=== PATIENT | female | born 2000 | race Caucasian/White ===

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

== ENCOUNTER 2019-08-06 11:57 | Emergency (ER) | payer OTHER ==
--- OUTSIDE RECORDS SUMMARY | 2019-08-06 12:11 | XMS REPORT ---
:2000 Author Organization [facility] Care Team Providers Name Role Phone GARCÍA POTTER Primary Care Physician Unavailable Allergies, Adverse Reactions, Alerts Allergy Code CodeSystem Reaction Severity Criticality Status Start Substance Date Moderate Medications Medication Medication Medication Start Stop Route Dose Status Fill Code CodeSystem Date Date Instructions amlodipine 613368 RxNorm 2018-07 oral 2.5 mg active for 30 -14 tablet day(s) atorvastatin 814234 RxNorm 2018-04 oral 10 mg active for 30 -23 tablet day(s) carbamazepine 188782 RxNorm 2018-07 oral 200 mg active for 30 -19 tablet day(s) mirtazapine 450227 RxNorm 2018-10 oral 15 mg active for 30 -14 tablet day(s) mirtazapine 942517 RxNorm 2018-10 2019-0 oral 15 mg active for 30 -14 8-12 tablet day(s) metformin 424630 RxNorm 2018-06 oral 850 mg active for 30 -29 tablet day(s) Latuda 8370146 RxNorm 2018-01 oral 40 mg active for 30 -07 tablet day(s) clonidine HCl 953975 RxNorm 2018-07 oral 0.1 mg active for 30 -26 tablet day(s) Problems Problem Name Code CodeSystem Alternate Alternate Start End Status Narrative Code CodeSystem Date Date Bipolar 90307098 SNOMED-CT 2018- Active affective 3-22 disorder, unspecified Bipolar 73362435 SNOMED-CT 0 Active affective 3-22 disorder, unspecified Relevant diagnostic tests/laboratory data Narrative No Information Procedures Procedure Code CodeSystem Target Date of Status Service Device Device Device Name Site Procedure Delivery Code Name UID Location SNOMED-CT () 2018-09-[address], [id number] SNOMED-CT () 2018-09-[address], [place], [id number] SNOMED-CT () 2018-10-07 complete Mental d Health- [address], [id number] Office or [id number] SNOMED-CT () 2018-10-16 complete Mental other 6 d Health- outpatient [facility] visit for [address], [facility], of an [place], established [id number] patient, [phone] which requires at least 2 of these 3 rand components: A problem focused history; A problem focused examination; Straightforw brenton medical decision making. Counselin SNOMED-CT () 2018-10-21 complete Mental d Health- [address], [id number] SNOMED-CT () 2018-11-25 complete Mental d Health- [address], [id number] [id number] Psychotherap [id number] SNOMED-CT () 2018-12-09 complete Mental y, 45 04 d Health- minutes with [address], [id number] [id number] Psychotherap [id number] SNOMED-CT () 2018-12-30 complete Mental y, 45 04 d Health- minutes with [address], [id number] [id number] SNOMED-CT () 2019-01-27 complete Mental d Health- [address], [id number] [id number] Psychotherap [id number] SNOMED-CT () 2019-02-17 complete Mental y, 45 04 d Health- minutes with [address], [id number] [phone] SNOMED-CT () 2019-03-11 complete Mental d Health- [address], [id number] [phone] SNOMED-CT () 2019-04-08 complete Mental d Health- [address], [id number] [id number] SNOMED-CT () 2019-04-29 complete Mental d Health- [address], [id number] [id number] SNOMED-CT () 2019-05-13 complete Mental d Health- [address], [id number] [id number] Psychotherap [id number] SNOMED-CT () 2019-05-28 complete Mental y, 45 04 d Health- minutes with [address], [id number] [phone] SNOMED-CT () 2019-06-17 complete Mental d Health- [address], [id number] [id number] SNOMED-CT () 2019-07-15 complete Mental d Health- [address], [id number] [phone] Encounters/Encounter Diagnoses Encounter Name Encounter Diagnosis Diagnosis Diagnosis Date of Service Code Code Name CodeSystem Diagnosis Delivery Location Psychotherapy [id number] Bipolar SNOMED-CT 2019-07-15 Behavioral Individual 30 affective Health min disorder, [facility] [address] [place], [place], [phone] Vital Signs No Information Social History Element Description Description Start End Code CodeSystem AdditionalInfo Date Date SexAssignedAtBirth Female 1999-06 F AdministrativeGender 2-14 Hospital Discharge Instructions Reason For Referral Medical Equipment FDA Assessments
--- OUTSIDE RECORDS SUMMARY | 2019-08-06 12:11 | XMS REPORT | Continuity of Care Document ---
:2000 External Reference #:[id number] Author Name CINDY Joseph Address [address] [id number] Care Team Providers Name Role Phone Sean Schwab - Family Medicine Care Team Information Environmental Engineering Professor 1965 Problems Description No Information Available Social History Type Date Description Comments Sex Unknown Allergies, Adverse Reactions, Alerts Active Allergies Reaction Severity Comments Date Nka 12/25/1999 Sulfamethoxazole / Trimethoprim 07/02/2019 Mirtazapine twitching 07/02/2019 Valproic Acid urticaria 07/02/2019 Medications Active Medications SIG Qnty Indications Ordering Provider Date Metformin HCL take 1 tablet by Unknown 850mg Tablets mouth twice a day Clonidine HCL 0.1MG 3 tablets by Unknown mouth at bedtime Multivitamin 2 a day Unknown Acetaminophen 2 tablets by Unknown 325mg Tablets mouth every 6 hours as needed Amlodipine Besylate 1 by mouth every Unknown 2.5mg day Tablets Xyzal 5MG one a day Unknown Latuda 1 tab by mouth Unknown 40mg Tablets every day Anita 1 by mouth every Unknown 3-0.02mg Tablets day Atorvastatin Calcium 1 by mouth every Unknown 10mg day Tablets Tegretol take 1 tablet in Unknown 200mg Tablets the morning and afternoon, and 2 at bedtime Zoloft 50MG one a day Unknown History Medications Tamiflu Use 1 PO Q.D 7caps Sha Meraz, 05/25/2019 - 75mg Capsules X 7 Days M.D. 07/02/2019 Immunizations CPT Code Status Date Vaccine Lot # [id number] Given 12/18/1999 DTaP & Hib Immunization 83873 Given 12/18/1999 IPV Inactive Poliovirus Vaccine 49893 Given 05/30/1999 MMR Virus Immunization 20340 Given 1998 Comvax Hep B & Hib Immunization 19769 Given 1998 DTaP Immunization 91379 Given 1998 IPV Inactive Poliovirus Vaccine 37404 Given 1998 DTaP Immunization 94098 Given 1998 (Hib) Hemoplilus Influenza B 39304 Given 1998 Inactive Polio Immunization 56604 Given 1998 Hemopholus Influenza B Immunization 10735 Given 1998 DTaP Immunization 96055 Given 1998 Hepatitis B Immunization, -19 Years 72925 Given 1998 Hepatitis B Immunization, -19 Years Vital Signs Date Vital Result Comment 07/02/2019 10:15am BP Systolic 120 mmHg BP Diastolic 70 mmHg Heart Rate 70 /min Body Temperature 97.2 F Respiratory Rate 20 /min Height 66.5 inches 5'6.50" Weight 271.00 lb BMI (Body Mass Index) 43.1 kg/m2 03/14/2009 11:02am BP Systolic 120 mmHg BP Diastolic 80 mmHg Heart Rate 96 /min Body Temperature 97.2 F Respiratory Rate 20 /min Height 58.5 inches 4'10.50" Weight 161.00 lb BMI (Body Mass Index) 33.1 kg/m2 Body Mass Index Percentile 99 % Weight Percentile >97th Height Percentile 78 % Results Description No Information Available Procedures Description No Information Available Medical Devices Description No Information Available Encounters Description No Information Available Assessments Date Code Description Provider 07/02/2019 M79.645 Pain in left finger(s) CINDY Joseph Plan of Treatment Future Appointment(s):07/21/2019 10:00 am - Genie Cook [facility]7/02/2019 - MARCIA JosephPM79.645 Pain in left finger(s) Functional Status Description No Information Available Mental Status Description No Information Available Referrals Description No Information Available
--- OUTSIDE RECORDS SUMMARY | 2019-08-06 12:11 | XMS REPORT ---
:2000 Author Organization [facility] Care Team Providers Name Role Phone GARCÍA POTTER Primary Care Physician Unavailable Allergies, Adverse Reactions, Alerts Allergy Code CodeSystem Reaction Severity Criticality Status Start Substance Date Moderate Medications Medication Medication Medication Start Stop Route Dose Status Fill Code CodeSystem Date Date Instructions mirtazapine 933581 RxNorm 2018-10 oral 15 mg active for 30 -14 tablet day(s) atorvastatin 630555 RxNorm 2018-04 oral 10 mg active for 30 -23 tablet day(s) metformin 155294 RxNorm 2018-06 oral 850 mg active for 30 -29 tablet day(s) amlodipine 108559 RxNorm 2018-07 oral 2.5 mg active for 30 -14 tablet day(s) clonidine HCl 795090 RxNorm 2018-07 oral 0.1 mg active for 30 -26 tablet day(s) carbamazepine 295177 RxNorm 2018-07 oral 200 mg active for 30 -19 tablet day(s) Latuda 0305574 RxNorm 2018-01 oral 40 mg active for 30 -07 tablet day(s) mirtazapine 711279 RxNorm 2018-100 oral 15 mg active for 30 -14 8-12 tablet day(s) Problems Problem Name Code CodeSystem Alternate Alternate Start End Status Narrative Code CodeSystem Date Date Bipolar 91386415 SNOMED-CT Active affective 3-22 disorder, unspecified Bipolar 09313747 SNOMED-CT 0 Active affective 3-22 disorder, unspecified Relevant diagnostic tests/laboratory data Narrative No Information Procedures Procedure Code CodeSystem Target Date of Status Service Device Device Device Name Site Procedure Delivery Code Name UID Location Psychotherap [id number] SNOMED-CT () 2019-02-17 complete Mental y, 45 04 d Health- minutes with [address], [id number] [id number] Psychotherap [id number] SNOMED-CT () 2018-12-09 complete Mental y, 45 04 d Health- minutes with [place] patient [address], [id number] [phone] Psychotherap [id number] SNOMED-CT () 2018-12-30 complete Mental y, 45 04 d Health- minutes with [place] patient [address], [id number] [id number] [place] [id number] SNOMED-CT () 2018-10-16 complete Mental other 6 d Health- outpatient [facility] visit for [place] the [address] [place] [address], [facility], of an [place], established [id number] patient, [phone] which requires at least 2 of these 3 rand components: A problem focused history; A problem focused examination; Straightforw brenton medical decision making. Counselin SNOMED-CT () 2018-10-21 complete Mental d Health[address], [id number] [phone] SNOMED-CT () 2018-11-25 complete Mental d Health- [address], [id number] [phone] SNOMED-CT () 2018-09-15 complete Mental d Health[address], [id number] [phone] SNOMED-CT () 2018-10-07 complete Mental d Health- [address], [id number] [id number] SNOMED-CT () 2019-01-27 complete Mental d Health- [address], [id number] [id number] SNOMED-CT () 2019-03-11 complete Mental d Health- [address], [id number] [phone] SNOMED-CT () 2019-04-08 complete Mental d Health- [address], [id number] [phone] SNOMED-CT () 2019-04-29 complete Mental d Health[address], [id number] [phone] SNOMED-CT () 2019-05-13 complete Mental d Health- [facility] [address] [place], [place], [id number] [phone] SNOMED-CT () 2018-09-[facility] [address] [place], [place], [id number] [phone] Encounters/Encounter Diagnoses Encounter Name Encounter Diagnosis Diagnosis Diagnosis Date of Service Code Code Name CodeSystem Diagnosis Delivery Location Psychotherapy 41255 [id number] Bipolar SNOMED-CT 2019-05-13 Behavioral Individual 30 affective Health min disorder, [facility] [address] [place], [place], [phone] Vital Signs No Information Social History Element Description Description Start End Code CodeSystem AdditionalInfo Date Date SexAssignedAtBirth Female 1999-06 F AdministrativeGender - Hospital Discharge Instructions Reason For Referral Medical Equipment FDA Assessments
--- NOTE | 2019-08-06 12:37 | ED ---
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 Pain Intensity: 0 - Allergy/Home Medications Allergies/Adverse Reactions: Allergies Allergy/AdvReac Type Severity Reaction Status Date / Time MS Sulfamethoxazole Allergy Intermediate Rash Verified 06/10/17 11:39 w/Trimethoprim [From Bactrim] MS Phenytoin [From Dilantin] Allergy UNK Verified 06/10/17 11:39 MS Silver Sulfadiazine Allergy Itching Verified 06/10/17 11:39 [From Silvadene] MS Sulfa Antibiotics Allergy Rash Verified 06/10/17 11:39 [Sulfa Antibiotics] MS Valproic Acid Allergy UNK Verified 06/10/17 11:39 [From Depakote] Home Medications: Home Medications Vitamin THERAPEUTIC TAB* [Theragran TAB*] 1 tab PO DAILY #30 tab 07/10/16 [Rx Confirmed 05/19/17] carBAMazepine TAB(*) [Tegretol TAB(*)] 200 mg PO QAM #30 tab 07/10/16 [Rx Confirmed 05/19/17] carBAMazepine TAB(*) [Tegretol TAB(*)] 400 mg PO 2100 #60 tab 07/10/16 [Rx Confirmed 05/19/17] cloNIDine TAB* [Catapres 0.1 MG TAB*] 0.3 mg PO QPM #90 tab 07/10/16 [Rx Confirmed 05/19/17] Ibuprofen TAB* [Motrin TAB* 800 MG] 400 mg PO Q6H PRN 05/19/17 [History Confirmed 05/19/17] Ibuprofen TAB* [Motrin TAB* 800 MG] 800 mg PO Q6H #30 tab 05/19/17 [Rx] Latuda 40 mg PO DAILY 05/19/17 [History Confirmed 05/19/17] LevoCETirizine TAB (NF) [Xyzal TAB (NF)] 1 tab PO DAILY 05/19/17 [History Confirmed 05/19/17] Magnesium 1 tab PO DAILY 05/19/17 [History Confirmed 05/19/17] metFORMIN* [Glucophage 500 MG TAB *] 850 mg PO BID 05/19/17 [History Confirmed 05/19/17] Ethinyl Estradiol/Drospirenone [Anita 3-0.02 mg] 1 tab PO 06/10/17 [History] PMH/Surg Hx/FS Hx/Imm Hx Previously Healthy: Yes Endocrine/Hematology History: Reports: Hx Diabetes - prediabetic - takes metformin, Other Endocrine/Hematological Disorders - obesity Denies: Hx Anticoagulant Therapy, Hx Blood Disorders, Hx Anemia Cardiovascular History: Reports: Hx Hypertension - amlodipine Denies: Other Cardiovascular Problems/Disorders Respiratory History: Reports: Hx Pneumonia, Hx Seasonal Allergies Denies: Hx Asthma, Hx Chronic Bronchitis, Hx Chronic Obstructive Pulmonary Disease (COPD), Hx Cystic Fibrosis, Hx Lung Cancer, Hx Pleural Effusion, Hx Pulmonary Edema, Hx Pulmonary Embolism, Hx Sleep Apnea, Other Respiratory Problems/Disorders GI History: Reports: Other GI Disorders - elevated LFTs - on statin Denies: Hx Cirrhosis, Hx Crohn's Disease, Hx Irritable Bowel History: Denies: Hx Kidney Stones Musculoskeletal History: Reports: Hx Orthopedic Injury - Left foot fracture, Other Musculoskeletal History - Scheuermann's Disease Denies: Hx Arthritis, Hx Back Problems, Hx Bursitis, Hx Fibromyalgia, Hx Gout , Hx Osteoporosis, Hx Scoliosis, Hx Tendonitis Sensory History: Reports: Hx Contacts or Glasses - Pt has glasses with her Denies: Hx Cataracts, Hx Eye Injury, Hx Eye Prosthesis, Hx Glaucoma, Hx Legally Blind, Hx Macular Degeneration, Hx Vision Problem, Hx Deafness, Hx Hearing Aid, Hx Hearing Problem, Other Sensory Impairments Opthamlomology History: Reports: Hx Contacts or Glasses - Pt has glasses with her Denies: Hx Cataracts, Hx Eye Injury, Hx Eye Prosthesis, Hx Glaucoma, Hx Legally Blind, Hx Macular Degeneration, Hx Vision Problem, Other Sensory Impairments Neurological History: Reports: Hx Developmental Delay, Hx Headaches, Hx Seizures - myoclonal (recent onset) Denies: Hx Dementia, Hx Migraine, Hx Nerve Disease, Hx Spinal Cord Injury, Hx Transient Ischemic Attacks (TIA), Other Neuro Impairments/Disorders Psychiatric History: Reports: Hx Anxiety, Hx Attention Deficit Hyperactivity Disorder, Hx Depression, Hx Panic Disorder, Hx Inpatient Treatment, Hx Community Mental Health Tx, Hx Bipolar Disorder, Hx of Violent Episodes Against Others - Hits people/throws things, Other Psychiatric Issues/Disorders - Ingesting non-edible items (i.e.-mattress foam, shoelaces) Denies: Hx Eating Disorder, Hx Suicide Attempt, Hx Substance Abuse - Cancer History Hx Chemotherapy: No - Surgical History Surgery Procedure, Year, and Place: Oral Surgery 2002, Left Foot Post Fracture Hx Anesthesia Reactions: No Infectious Disease History: No Infectious Disease History: Denies: Hx Clostridium Difficile, Hx Hepatitis, Hx Human Immunodeficiency Virus (HIV), Hx of Known/Suspected MRSA, Hx Tuberculosis, History Other Infectious Disease, Traveled Outside the [place] in Last 30 Days - Family History Known Family History: Positive: None, Unknown - patient is unaware, Seizure Disorder - Uncle and second cousin - Social History Alcohol Use: None Hx Substance Use: No Substance Use Type: Reports: None Hx Tobacco Use: No Smoking Status (MU): Never Smoked Tobacco Physical Exam Vital Signs On Initial Exam: Initial Vitals Temp Pulse Resp BP Pulse Ox 98.0 F 87 16 149/102 99 08/06/19 11:59 08/06/19 11:59 08/06/19 11:59 08/06/19 11:59 08/06/19 11:59 Diagnostics - Vital Signs Vital Signs Temp Pulse Resp BP Pulse Ox 08/06/19 11:59 98.0 F 87 16 149/102 99 - Laboratory Lab Statement: Any lab studies that have been ordered have been reviewed, and results considered in the medical decision making process. Discharge ED - Discharge Plan Referrals: Loly Israel NP [Primary Care Provider] -
--- NOTE | 2019-08-06 12:39 | ED ---
Psychiatric Complaint - HPI Summary HPI Summary: Patient is a 19-year-old female who presents emergency department for mental health evaluation. Patient has a history of anxiety depression. Patient notes she isn't having nightmares over the last few weeks and has not been able to sleep.. Staff member present notes that patient was drinking alcohol yesterday morning and was found with razor blades today. Patient denies suicidal ideations. Symptoms are moderate in severity. No current modifying factors. Patient denies any drug or alcohol use today. Notes she's been taking her medications daily as prescribed. 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 [employer] Hx Last Menstrual Period: unknow - Allergies/Home Medications Allergies/Adverse Reactions: Allergies Allergy/AdvReac Type Severity Reaction Status Date / Time MS Sulfamethoxazole Allergy Intermediate Rash Verified 06/10/17 11:39 w/Trimethoprim [From Bactrim] MS Phenytoin [From Dilantin] Allergy UNK Verified 06/10/17 11:39 MS Silver Sulfadiazine Allergy Itching Verified 06/10/17 11:39 [From Silvadene] MS Sulfa Antibiotics Allergy Rash Verified 06/10/17 11:39 [Sulfa Antibiotics] MS Valproic Acid Allergy UNK Verified 06/10/17 11:39 [From Depakote] Home Medications: Home Medications Vitamin THERAPEUTIC TAB* [Theragran TAB*] 1 tab PO DAILY #30 tab 07/10/16 [Rx Confirmed 08/06/19] cloNIDine TAB* [Catapres 0.1 MG TAB*] 0.3 mg PO QPM #90 tab 07/10/16 [Rx Confirmed 08/06/19] Ibuprofen TAB* [Motrin TAB* 800 MG] 400 mg PO Q6H PRN 05/19/17 [History Confirmed 08/06/19] Amlodipine 2.5 mg TAB (NF) 2.5 mg PO DAILY 08/06/19 [History Confirmed 08/06/19] Atorvastatin* [Lipitor*] 10 mg PO BEDTIME 08/06/19 [History Confirmed 08/06/19] Ethinyl Estradiol/Drospirenone [Gianvi 3-0.02 mg] 1 tab PO DAILY 08/06/19 [ History Confirmed 08/06/19] carBAMazepine TAB(*) [TEGretol TAB(*)] 400 mg PO BEDTIME 08/06/19 [History Confirmed 08/06/19] carBAMazepine TAB(*) [Tegretol TAB(*)] 200 mg PO BID 08/06/19 [History Confirmed 08/06/19] hydrOXYzine HCL TAB* [Atarax 25 MG TAB*] 25 mg PO DAILY 08/06/19 [History Confirmed 08/06/19] metFORMIN* [Glucophage 850 MG TAB *] 850 mg PO BID 08/06/19 [History Confirmed 08/06/19] PMH/Surg Hx/FS Hx/Imm Hx Previously Healthy: Yes Endocrine/Hematology History: Reports: Hx Diabetes - prediabetic - takes metformin, Other Endocrine/Hematological Disorders - obesity Denies: Hx Anticoagulant Therapy, Hx Blood Disorders, Hx Anemia Cardiovascular History: Reports: Hx Hypertension - amlodipine Denies: Other Cardiovascular Problems/Disorders Respiratory History: Reports: Hx Pneumonia, Hx Seasonal Allergies Denies: Hx Asthma, Hx Chronic Bronchitis, Hx Chronic Obstructive Pulmonary Disease (COPD), Hx Cystic Fibrosis, Hx Lung Cancer, Hx Pleural Effusion, Hx Pulmonary Edema, Hx Pulmonary Embolism, Hx Sleep Apnea, Other Respiratory Problems/Disorders GI History: Reports: Other GI Disorders - elevated LFTs - on statin Denies: Hx Cirrhosis, Hx Crohn's Disease, Hx Irritable Bowel History: Denies: Hx Kidney Stones Musculoskeletal History: Reports: Hx Orthopedic Injury - Left foot fracture, Other Musculoskeletal History - Scheuermann's Disease Denies: Hx Arthritis, Hx Back Problems, Hx Bursitis, Hx Fibromyalgia, Hx Gout , Hx Osteoporosis, Hx Scoliosis, Hx Tendonitis Sensory History: Reports: Hx Contacts or Glasses - Pt has glasses with her Denies: Hx Cataracts, Hx Eye Injury, Hx Eye Prosthesis, Hx Glaucoma, Hx Legally Blind, Hx Macular Degeneration, Hx Vision Problem, Other Sensory Impairments Opthamlomology History: Reports: Hx Contacts or Glasses - Pt has glasses with her Denies: Hx Cataracts, Hx Eye Injury, Hx Eye Prosthesis, Hx Glaucoma, Hx Legally Blind, Hx Macular Degeneration, Hx Vision Problem, Other Sensory Impairments Neurological History: Reports: Hx Developmental Delay, Hx Headaches, Hx Seizures - myoclonal (recent onset) Denies: Hx Dementia, Hx Migraine, Hx Nerve Disease, Hx Spinal Cord Injury, Hx Transient Ischemic Attacks (TIA), Other Neuro Impairments/Disorders Psychiatric History: Reports: Hx Anxiety, Hx Attention Deficit Hyperactivity Disorder, Hx Depression, Hx Panic Disorder, Hx Inpatient Treatment, Hx Community Mental Health Tx, Hx Bipolar Disorder, Hx of Violent Episodes Against Others - Hits people/throws things, Other Psychiatric Issues/Disorders - Ingesting non-edible items (i.e.-mattress foam, shoelaces) Denies: Hx Eating Disorder, Hx Suicide Attempt, Hx Substance Abuse - Cancer History Hx Chemotherapy: No - Surgical History Surgery Procedure, Year, and Place: Oral Surgery 2002, Left Foot Post Fracture Hx Anesthesia Reactions: No Infectious Disease History: No Infectious Disease History: Denies: Hx Clostridium Difficile, Hx Hepatitis, Hx Human Immunodeficiency Virus (HIV), Hx of Known/Suspected MRSA, Hx Tuberculosis, History Other Infectious Disease, Traveled Outside the [place] in Last 30 Days - Family History Known Family History: Positive: None, Unknown - patient is unaware, Seizure Disorder - Uncle and second cousin - Social History Alcohol Use: None Hx Substance Use: No Substance Use Type: Reports: None Hx Tobacco Use: No Smoking Status (MU): Never Smoked Tobacco Review of Systems Constitutional: Negative Cardiovascular: Negative Respiratory: Negative Gastrointestinal: Negative Positive: Anxious, Depressed All Other Systems Reviewed And Are Negative: Yes Physical Exam Triage Information Reviewed: Yes Vital Signs On Initial Exam: Initial Vitals Temp Pulse Resp BP Pulse Ox 98.0 F 87 16 149/102 99 08/06/19 11:59 08/06/19 11:59 08/06/19 11:59 08/06/19 11:59 08/06/19 11:59 Vital Signs Reviewed: Yes Appearance: Positive: Well-Appearing - Patient sitting in bed in no acute distress. Staff member present. Skin: Positive: Warm, Dry Head/Face: Positive: Normal Head/Face Inspection Eyes: Positive: Normal, EOMI, NINFA Neck: Positive: Supple Respiratory/Lung Sounds: Positive: Clear to Auscultation, Breath Sounds Present Cardiovascular: Positive: Normal, RRR Neurological: Positive: Normal, CN Intact II-III Psychiatric: Positive: Anxious Procedures - Sedation Patient Received Moderate/Deep Sedation with Procedure: No Diagnostics - Vital Signs Vital Signs Temp Pulse Resp BP Pulse Ox 08/06/19 11:59 98.0 F 87 16 149/102 99 - Laboratory Result Diagrams: 08/06/19 13:00 08/06/19 13:00 Lab Statement: Any lab studies that have been ordered have been reviewed, and results considered in the medical decision making process. Course/Dx - Course Course Of Treatment: Patient presenting for mental evaluation. Medically clear. No to the and asked for evaluation. Patient be signed out to [facility] for disposition. - Differential Dx/Clinical Impression Differential Diagnosis/HQI/PQRI: Positive: Alcohol Intoxication, Anxiety, Depression Provider Diagnosis: Anxiety Discharge ED - Sign-Out/Discharge Documenting (check all that apply): Sign-Out Patient Signing out patient TO: Jac Tay - Discharge Plan Patient Education Materials: Prazosin (By mouth), Insomnia (ED) Referrals: Loly Israel NP [Primary Care Provider] - - Attestation Statements Provider Attestation: pt seen by midlevel provider independently, based on their assessment, it was not necessary to present the case to me but I was available for consultation. I did not form a physician-patient relationship with the patient. The chart however, has been reviewed. am signing this note strictly in an administrative capacity.
[2019-08-06 13:10] LABS: ABS Basophils 0.1 10^3/ul (0-0.2); ABS Monocytes 0.4 10^3/ul (0-0.8); Eosinophil % 0.2 %; Hematocrit 38 % (35-47); Hemoglobin 13.3 g/dL (12.0-16.0); Mean Corpuscular HGB Conc 35 g/dL (31-36); Mean Corpuscular Hemoglobin 30 pg (27-31); Mean Corpuscular Volume 86 fL (80-97); Mean Platelet Volume 6.9 fL (7.4-10.4); Platelet Count 443 10^3/uL (150-450); Red Blood Count 4.43 10^6 /uL (3.70-4.87); Red Cell Distribution Width 14 % (10-15); White Blood Count 10.5 10^3/uL (3.5-10.8)
[2019-08-06 13:23] LABS: Albumin 4.4 g/dL (3.2-5.2); Anion Gap 11 mmol/L (2-11); Blood Urea Nitrogen 11 mg/dL (6-24); CO2 Carbon Dioxide 24 mmol/L (22-32); Calcium 9.5 mg/dL (8.6-10.3); Chloride 103 mmol/L (101-111); EGFR African American 149.8 (>60); EGFR Non-African American 123.8 (>60); Globulin 3.3 g/dL (2-4); Glucose 94 mg/dL (70-100); Potassium 3.8 mmol/L (3.5-5.0); Sodium 138 mmol/L (135-145); Total Protein 7.7 g/dL (6.4-8.9)
[2019-08-06 13:24] LABS: ALT 45 U/L (7-52); AST 38 U/L (13-39); Acetaminophen < 15 mcg/mL; Albumin/Globulin Ratio 1.3 (1-3); Alcohol < 10 mg/dL (<10); Alkaline Phosphatase 102 U/L (34-104); Salicylate < 2.50 mg/dL (<30)
[2019-08-06 13:39] LABS: TSH (Thyroid Stimulating Horm) 0.56 mcIU/mL (0.34-5.60)
[2019-08-06 19:33] VITALS: BP 141/94
--- NOTE | 2019-08-06 19:33 | ED ---
Progress - Progress Note Progress Note: Pt signed out to me by LEWIS Rojas at 1730. Pt diagnosed with depressive disorder by Dr. Wynn, psychiatry and deemed fit for outpatient follow-up.. Patient discharged home with prescription for prazosin 1 mg daily for nightmare. Patient discharged outpatient follow-up. Course/Dx - Course Course Of Treatment: Patient presenting for mental evaluation. Medically clear. No to the and asked for evaluation. Patient be signed out to [facility] for disposition. - Diagnoses Provider Diagnoses: Anxiety Discharge ED - Sign-Out/Discharge Documenting (check all that apply): Patient Departure - Discharge Plan Condition: Stable Disposition: HOME Prescriptions: Prazosin 1 mg CAP [Minipress 1 mg CAP] 1 mg PO DAILY #20 cap Patient Education Materials: Prazosin (By mouth), Insomnia (ED) Referrals: Loly Israel NP [Primary Care Provider] - - Billing Disposition and Condition Condition: STABLE Disposition: Home
== END 2019-08-06 19:30 | disposition home or self-care (01) ==
LOC: ED 11:57
DX: F41.9 Anxiety disorder, unspecified (principal); F32.9 Major depressive disorder, single episode, unspecified; R73.03 Prediabetes; Z79.84 Long term (current) use of oral hypoglycemic drugs; I10 Essential (primary) hypertension; F90.9 Attention-deficit hyperactivity disorder, unspecified type; R56.9 Unspecified convulsions; Z79.899 Other long term (current) drug therapy; Z88.2 Allergy status to sulfonamides; Z88.8 Allergy status to other drugs, medicaments and biological substances
CPT/HCPCS: 36415; 80053; 80320; 80329; 84443; 85025; 99285; G0480

== ENCOUNTER 2019-08-17 19:14 | Emergency (ER) | payer OTHER ==
--- OUTSIDE RECORDS SUMMARY | 2019-08-17 19:40 | XMS REPORT | Continuity of Care Document ---
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 [phone] Problems Active Problems Provider Date Bipolar disorder Genie Cook NP Onset: 07/21/2019 Cognitive disorder Genie Cook NP Onset: 07/21/2019 Obesity Genie Cook NP Onset: 07/21/2019 Essential hypertension Genie Cook NP Onset: 07/21/2019 Social History Type Date Description Comments Sex Unknown Tobacco Use Start: Unknown Denies Tobacco Use ETOH Use Denies alcohol use Tobacco Use Start: Unknown End: Patient is a former smoker quit smoking smoked < Unknown 1 year age 16 in longterm Smoking Status Reviewed: 07/21/19 Patient is a former smoker quit smoking smoked < 1 year age 16 in longterm Allergies, Adverse Reactions, Alerts Active Allergies Reaction Severity Comments Date Nka 12/25/1999 Sulfamethoxazole / Trimethoprim 07/02/2019 Mirtazapine twitching 07/02/2019 Valproic Acid urticaria 07/02/2019 Medications Active Medications SIG Qnty Indications Ordering Provider Date Gianvi 1 by mouth 84tabs Genie Mtz 08/03/2019 3-0.02mg Tablets every day Cook [employer] Clonidine HCL 3 tablets by 90tabs Loly 07/30/2019 0.1mg mouth at CINDY Israel Tablets bedtime Metformin HCL take 1 tablet 60tabs Genie Mtz 850mg by mouth twice Joey [employer] Tablets a day Multivitamin 2 a day Unknown Acetaminophen 2 tablets by Unknown 325mg mouth every 6 Tablets hours as needed Amlodipine Besylate 1 by mouth 30tabs Genie Mtz 2.5mg every day Cook, [employer] Tablets Xyzal 5MG one a day Unknown Latuda 1 tab by mouth Unknown 40mg Tablets every day Atorvastatin Calcium 1 by mouth 30tabs Genie Bibi 10mg every day Cook, [employer] Tablets Tegretol take 1 tablet 120tabs Genie Bibi 200mg Tablets in the morning Cook, [employer] and afternoon, and 2 at bedtime Zoloft 50MG one a day Unknown History Medications Tamiflu Use 1 PO Q.D 7caps Sha Meraz, 05/25/2019 - 75mg Capsules X 7 Days M.D. 07/02/2019 Immunizations CPT Code Status Date Vaccine Lot # [id number] Given 11/16/2014 Meningococcal Conjugate Vaccine,Serogroups For Intramuscular Use 41066 Given 06/21/2010 gardasil 9 46970 Given 02/01/2010 gardasil 9 87372 Given 10/07/2009 Meningococcal Conjugate Vaccine,Serogroups For Intramuscular Use 70475 Given 10/07/2009 Tdap Tetanus, W Pertussis 46762 Given 10/07/2009 gardasil 9 55190 Given 12/18/1999 DTaP & Hib Immunization 18787 Given 12/18/1999 IPV Inactive Poliovirus Vaccine 21005 Given 05/30/1999 MMR Virus Immunization 38479 Given 1998 DTaP Immunization 72912 Given 1998 Comvax Hep B & Hib Immunization 37249 Given 1998 IPV Inactive Poliovirus Vaccine 13561 Given 1998 DTaP Immunization 52707 Given 1998 (Hib) Hemoplilus Influenza B 99847 Given 1998 Inactive Polio Immunization 27468 Given 1998 Hemopholus Influenza B Immunization 42412 Given 1998 DTaP Immunization 00704 Given 1998 Hepatitis B Immunization, [place]-19 Years 66044 Given 1998 Hepatitis B Immunization, -19 Years Vital Signs Date Vital Result Comment 08/14/2019 3:33pm BP Systolic 132 mmHg BP Diastolic 100 mmHg Heart Rate 64 /min Body Temperature 97.9 F Respiratory Rate 16 /min Height 67 inches 5'7" Weight 272.12 lb shoes on BMI (Body Mass Index) 42.6 kg/m2 07/21/2019 9:55am BP Systolic 122 mmHg left arm BP Diastolic 76 mmHg left arm BP Systolic Recheck 120 mmHg right arm BP Diastolic Recheck 78 mmHg right arm Heart Rate 76 /min Body Temperature 97.3 F Respiratory Rate 20 /min O2 % BldC Oximetry 98 % Height 67 inches 5'7" Weight 274.00 lb BMI (Body Mass Index) 42.9 kg/m2 Right Visual Acuity Distance 20/30 with glasses Left Visual Acuity Distance 20/40 with glasses Results Test Acquired Date Facility Test Result H/L Range Note CBC Auto Diff 08/06/2019 [facility] [place] White Blood 10.5 10^3/uL Normal 3.5-10.8 Count Red Blood Count 4.43 10^6/uL Normal 3.70-4.87 Hemoglobin 13.3 g/dL Normal 12.0-16.0 Hematocrit 38 % Normal 35-47 Mean Corpuscular Volume 86 fL Normal 80-97 Mean Corpuscular Hemoglobin 30 pg Normal 27-31 Mean Corpuscular HGB Conc 35 g/dL Normal 31-36 Red Cell Distribution Width 14 % Normal 10-15 Platelet Count 443 10^3/uL Normal 150-450 Mean Platelet Volume 6.9 fL Low 7.4-10.4 Abs Neutrophils 7.0 10^3/uL Normal 1.5-7.7 Abs Lymphocytes 3.0 10^3/uL Normal 1.0-4.8 Abs Monocytes 0.4 10^3/uL Normal 0-0.8 Abs Eosinophils 0.0 10^3/uL Normal 0-0.6 Abs Basophils 0.1 10^3/uL Normal 0-0.2 Abs Nucleated RBC 0.0 10^3/uL Granulocyte % 66.2 % Lymphocyte % 29.0 % Monocyte % 3.9 % Eosinophil % 0.2 % Basophil % 0.7 % Nucleated Red Blood Cells % 0.0 Comp Metabolic Panel 08/06/2019 [facility] [place] Sodium 138 mmol/L Normal 135-145 Potassium 3.8 mmol/L Normal 3.5-5.0 Chloride 103 mmol/L Normal 101-111 Co2 Carbon Dioxide 24 mmol/L Normal 22-32 Anion Gap 11 mmol/L Normal 2-11 Glucose 94 mg/dL Normal 70-100 Blood Urea Nitrogen 11 mg/dL Normal 6-24 Creatinine 0.61 mg/dL Normal 0.51-0.95 BUN/Creatinine Ratio 18.0 Normal 8-20 Calcium 9.5 mg/dL Normal 8.6-10.3 Total Protein 7.7 g/dL Normal 6.4-8.9 Albumin 4.4 g/dL Normal 3.2-5.2 Globulin 3.3 g/dL Normal 2-4 Albumin/Globulin Ratio 1.3 Normal 1-3 Total Bilirubin 0.30 mg/dL Normal 0.2-1.0 Alkaline Phosphatase 102 U/L Normal 34-104 Alt 45 U/L Normal 7-52 Ast 38 U/L Normal 13-39 Egfr Non- 123.8 >60 Egfr 149.8 >60 1 Laboratory test finding 08/06/2019 [facility] Acetaminophen < 15 g/mL 2 Alcohol < 10 mg/dL Normal <10 Salicylate < 2.50 mg/dL <30 TSH (Thyroid Stim Horm) 0.56 mcIU/mL Normal 0.34-5.60 Comprehensive Metabolic 07/21/2019 [facility]) Sodium 137 mEq/L 134-149 Prof Potassium 4.4 mEq/L 3.6-5.5 Chloride 99 mEq/L 94-112 Carbon Dioxide 28 mEq/L 21-32 Glucose 126 mg/dL High 70-105 BUN 12 mg/dL 6-26 Creatinine 0.7 mg/dL 0.6-1.4 BUN/Creat Ratio 17.1 CALC 8.0-36.0 Calcium 10.2 mg/dL 8.9-10.6 Total Protein 7.3 g/dL 6.4-8.3 Albumin 4.5 g/dL 3.8-5.5 Globulin 2.8 g/dL 2.0-4.8 A/G Ratio 1.6 CALC 0.6-2.3 Alk. Phosphatase 92 U/L 30-110 Alt (SGPT) 23 U/L 7-35 Ast (Sgot) 22 U/L 5-34 Total Bilirubin 0.3 mg/dL 0.2-1.3 GFR Non- >60 ml/min/1.73m^ >=60 GFR >60 ml/min/1.73m^ >=60 Lipid Profile 07/21/2019 [facility]) Cholesterol 234 mg/dL High 120-200 Triglycerides 199 mg/dL 30-200 HDL Cholesterol 84 mg/dL 30-85 LDL (Calculated) 110 CALC 0-129 VLDL Cholesterol 40 mg/dL 0-50 HDL Risk Factor 2.8 CALC 0.0-4.4 Laboratory test finding 07/21/2019 [facility](a) TSH 1.18 mIU/L 0.50-6.00 Free T4 0.52 ng/dL Low 0.75-1.54 3 CK 79 U/L 26-140 CBC Electronic Fma 07/21/2019 [facility](a) WBC 9.9 x10^3/UL 4.0- 10.0 RBC 4.62 x10^6/UL 3.93-6.00 HGB 13.4 g/dL 12.0-17.0 HCT 41 % 35-50 MCV 88.3 fL 80.0-95.0 MCH 29.0 pg 25.6-32.2 MCHC 32.8 g/dL 32.2-36.0 RDW-CV 13.4 % 11.6-14.4 PLT 433 x10^3/UL High 163-400 4 MPV 9.1 fL Low 9.4-12.4 Carla# 6.46 x10^3/UL High 1.56-6.13 Lymph# 2.72 x10^3/UL 1.18-3.74 Stutsman# 0.59 x10^3/UL 0.24-0.82 Eos # 0.1 x10^3/UL 0.0-0.5 Baso # 0.02 x10^3/UL 0.01-0.08 Carla% 65.0 % 34.0-70.0 Lymph % 27.4 % 20.0-52.0 Stutsman% 5.9 % 5.0-12.0 Eos% 1.3 % 0.7-7.0 Baso% 0.2 % 0.1-1.2 Laboratory test 07/21/2019 [facility] Hemoglobin A1c (Fma) 4.9 % 4.1-5.7 finding (7)- - 1 Because ethnic data is not always readily available, this report includes an eGFR for both -Americans and non- Americans. The National Kidney Disease Education Program (NKDEP) does not endorse the use of the MDRD equation for patients that are not between the ages of 18 and 70, are , have extremes of body size, muscle mass, or nutritional status, or are non- or non-. According to the National Kidney Foundation, irrespective of diagnosis, the stage of the disease is based on the level of kidney function: Stage Description GFR(mL/min/1.73 m(2)) 1 Kidney damage with normal or decreased GFR 90 2 Kidney damage with mild decrease in GFR 60-89 3 Moderate decrease in GFR 30-59 4 Severe decrease in GFR 15-29 5 Kidney failure <15 (or dialysis) 2 Therapeutic concentration: <50 ug/mL Toxic concentration: >120 ug/mL 3 RESULTS VERIFIED BY REPEAT ANALYSIS 4 RESULTS VERIFIED BY REPEAT ANALYSIS Procedures Date Code Description Status 07/21/2019 04655 Vision Test- screening test of visual acuity, Completed quantitative, bila Medical Devices Description No Information Available Encounters Type Date Location Provider Dx Diagnosis Office Visit 07/21/2019 Main Office Genie Mtz G40.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, not 10:00a ALEYDA Cook intractable, without status epilepticus F31.81 Bipolar II disorder E66.9 Obesity, unspecified E28.2 Polycystic ovarian syndrome E78.5 Hyperlipidemia, unspecified I10 Essential (primary) hypertension J30.9 Allergic rhinitis, unspecified K75.81 Nonalcoholic steatohepatitis ([place]) E88.81 Metabolic syndrome F71 Moderate intellectual disabilities Z00.00 Encntr for general adult medical exam w/o abnormal findings Office Visit 07/02/2019 10:15a [facility] Loly M79.645 Pain in left Jhonatan, TOW FEEDER finger(s) Assessments Date Code Description Provider 08/14/2019 J02.9 Acute pharyngitis, unspecified CINDY Joseph 08/14/2019 B97.11 Coxsackievirus as the cause of diseases CINDY Joseph classified elsewhere 07/21/2019 G40.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, not intractable, without Genie Cook NP status epilepticus 07/21/2019 F31.81 Bipolar II disorder Genie Cook NP 07/21/2019 E66.9 Obesity, unspecified Genie Cook NP 07/21/2019 E28.2 Polycystic ovarian syndrome Genie Cook NP 07/21/2019 E78.5 Hyperlipidemia, unspecified Genie Cook NP 07/21/2019 I10 Essential (primary) hypertension Genie Cook NP 07/21/2019 J30.9 Allergic rhinitis, unspecified Genie Cook NP 07/21/2019 K75.81 Nonalcoholic steatohepatitis ([place]) Genie Cook NP 07/21/2019 E88.81 Metabolic syndrome Genie Cook NP 07/21/2019 F71 Moderate intellectual disabilities Genie Cook NP 07/21/2019 Z00.00 Encounter for general adult medical Genie Cook NP examination without abnormal findings 07/02/2019 M79.645 Pain in left finger(s) CINDY Joseph Plan of Treatment 08/14/2019 - CINDY JosephJ02.9 Acute pharyngitis, unspecifiedNew Labs: Quickstrep, Ordered: 08/14/19B97.11 Coxsackievirus as the cause of diseases classified elsewhere Functional Status Description No Information Available Mental Status Description No Information Available Referrals Description No Information Available
[2019-08-17] MEDS ORDERED: NS 0.9% 1000 ML** 1,000 ML IV ONE (19:53)
--- NOTE | 2019-08-17 20:54 | ED ---
Psychiatric Complaint - HPI Summary HPI Summary: This pt is a 19 Y/O F presenting to [facility] with a CC of self-harm. She states that she was recently diagnosed with [id number] disease and has been having increased depression. She states that she has a rash on her hands, neck, and inside of her mouth. She denies any recent fevers, CP, SOB, chills, N/V, and abdominal pain. She also denies any SI or HI. She has a PMHx of depression. She has no aggravating or alleviating factors. - History Of Current Complaint Chief Complaint: EDMentalHealth Time Seen by Provider: 08/17/19 20:37 Hx Obtained From: Patient Hx Last Menstrual Period: unknow ?: No Onset/Duration: Sudden Onset, Resolved Timing: Constant Severity Initially: Moderate Severity Currently: Moderate Character: Depressed Aggravating Factor(s): Nothing Alleviating Factor(s): Nothing Associated Signs And Symptoms: Positive: Negative - fevers, CP, SOB, chills, N/V , and abdominal pain. Has Suicidal: Denies: Thoughts Has Homicidal: Denies: Thoughts - Allergies/Home Medications Allergies/Adverse Reactions: Allergies Allergy/AdvReac Type Severity Reaction Status Date / Time MS Sulfamethoxazole Allergy Intermediate Rash Verified 08/17/19 19:20 w/Trimethoprim [From Bactrim] MS Phenytoin [From Dilantin] Allergy UNK Verified 08/17/19 19:20 MS Silver Sulfadiazine Allergy Itching Verified 08/17/19 19:20 [From Silvadene] MS Sulfa Antibiotics Allergy Rash Verified 08/17/19 19:20 [Sulfa Antibiotics] MS Valproic Acid Allergy UNK Verified 08/17/19 19:20 [From Depakote] Home Medications: Home Medications Vitamin THERAPEUTIC TAB* [Theragran TAB*] 1 tab PO DAILY #30 tab 07/10/16 [Rx Confirmed 08/06/19] cloNIDine TAB* [Catapres 0.1 MG TAB*] 0.3 mg PO QPM #90 tab 07/10/16 [Rx Confirmed 08/06/19] Ibuprofen TAB* [Motrin TAB* 800 MG] 400 mg PO Q6H PRN 05/19/17 [History Confirmed 08/06/19] Amlodipine 2.5 mg TAB (NF) 2.5 mg PO DAILY 08/06/19 [History Confirmed 08/06/19] Atorvastatin* [Lipitor*] 10 mg PO BEDTIME 08/06/19 [History Confirmed 08/06/19] Ethinyl Estradiol/Drospirenone [Gianvi 3-0.02 mg] 1 tab PO DAILY 08/06/19 [ History Confirmed 08/06/19] Prazosin 1 mg CAP [Minipress 1 mg CAP] 1 mg PO DAILY #20 cap 08/06/19 [Rx] carBAMazepine TAB(*) [TEGretol TAB(*)] 400 mg PO BEDTIME 08/06/19 [History Confirmed 08/06/19] carBAMazepine TAB(*) [Tegretol TAB(*)] 200 mg PO BID 08/06/19 [History Confirmed 08/06/19] hydrOXYzine HCL TAB* [Atarax 25 MG TAB*] 25 mg PO DAILY 08/06/19 [History Confirmed 08/06/19] metFORMIN* [Glucophage 850 MG TAB *] 850 mg PO BID 08/06/19 [History Confirmed 08/06/19] PMH/Surg Hx/FS Hx/Imm Hx Previously Healthy: Yes Endocrine/Hematology History: Reports: Hx Diabetes - prediabetic - takes metformin, Other Endocrine/Hematological Disorders - obesity Denies: Hx Anticoagulant Therapy, Hx Blood Disorders, Hx Anemia Cardiovascular History: Reports: Hx Hypertension - amlodipine Denies: Other Cardiovascular Problems/Disorders Respiratory History: Reports: Hx Pneumonia, Hx Seasonal Allergies Denies: Hx Asthma, Hx Chronic Bronchitis, Hx Chronic Obstructive Pulmonary Disease (COPD), Hx Cystic Fibrosis, Hx Lung Cancer, Hx Pleural Effusion, Hx Pulmonary Edema, Hx Pulmonary Embolism, Hx Sleep Apnea, Other Respiratory Problems/Disorders GI History: Reports: Other GI Disorders - elevated LFTs - on statin Denies: Hx Cirrhosis, Hx Crohn's Disease, Hx Irritable Bowel History: Denies: Hx Kidney Stones Musculoskeletal History: Reports: Hx Orthopedic Injury - Left foot fracture, Other Musculoskeletal History - Scheuermann's Disease Denies: Hx Arthritis, Hx Back Problems, Hx Bursitis, Hx Fibromyalgia, Hx Gout , Hx Osteoporosis, Hx Scoliosis, Hx Tendonitis Sensory History: Reports: Hx Contacts or Glasses - Pt has glasses with her Denies: Hx Cataracts, Hx Eye Injury, Hx Eye Prosthesis, Hx Glaucoma, Hx Legally Blind, Hx Macular Degeneration, Hx Vision Problem, Other Sensory Impairments Opthamlomology History: Reports: Hx Contacts or Glasses - Pt has glasses with her Denies: Hx Cataracts, Hx Eye Injury, Hx Eye Prosthesis, Hx Glaucoma, Hx Legally Blind, Hx Macular Degeneration, Hx Vision Problem, Other Sensory Impairments Neurological History: Reports: Hx Developmental Delay, Hx Headaches, Hx Seizures - myoclonal (recent onset) Denies: Hx Dementia, Hx Migraine, Hx Nerve Disease, Hx Spinal Cord Injury, Hx Transient Ischemic Attacks (TIA), Other Neuro Impairments/Disorders Psychiatric History: Reports: Hx Anxiety, Hx Attention Deficit Hyperactivity Disorder, Hx Depression, Hx Panic Disorder, Hx Post Traumatic Stress Disorder, Hx Inpatient Treatment, Hx Community Mental Health Tx, Hx Bipolar Disorder, Hx of Violent Episodes Against Others - Hits people/throws things, Other Psychiatric Issues/Disorders - Ingesting non-edible items (i.e.-mattress foam, shoelaces) Denies: Hx Eating Disorder, Hx Schizophrenia, Hx Suicide Attempt, Hx Substance Abuse - Cancer History Hx Chemotherapy: No Hx Radiation Therapy: No - Surgical History Surgical History: Yes Surgery Procedure, Year, and Place: Oral Surgery 2002, Left Foot Post Fracture Hx Anesthesia Reactions: No - Immunization History Immunizations Up to Date: Yes Infectious Disease History: No Infectious Disease History: Denies: Hx Clostridium Difficile, Hx Hepatitis, Hx Human Immunodeficiency Virus (HIV), Hx of Known/Suspected MRSA, Hx Tuberculosis, History Other Infectious Disease, Traveled Outside the [place] in Last 30 Days - Family History Known Family History: Positive: Seizure Disorder - Uncle and second cousin - Social History Occupation: Student Lives: With Family Alcohol Use: None Hx Substance Use: No Substance Use Type: Reports: None Hx Tobacco Use: No Smoking Status (MU): Never Smoked Tobacco Review of Systems Negative: Fever, Chills Negative: Chest Pain Negative: Shortness Of Breath Negative: Abdominal Pain, Vomiting, Nausea Positive: Depressed All Other Systems Reviewed And Are Negative: Yes Physical Exam - Summary Physical Exam Summary: Appearance: Well-appearing, Well-nourished, lying in bed comfortable Skin: Warm, dry, no obvious rash Eyes: sclera anicteric, no conjunctival pallor ENT: mucous membranes moist, few vesicles just adjacent to the R side of her lips Neck: deferred Respiratory: No signs of respiratory distress Cardiovascular: Appears well perfused, pulses are nml Abdomen: deferred Musculoskeletal: Moving all 4 extremities without obvious discomfort Neurological: Awake and alert, mentation is normal, speech is fluent and appropriate Psychiatric: affect is normal, does not appear anxious or depressed Triage Information Reviewed: Yes Vital Signs On Initial Exam: Initial Vitals Temp Pulse Resp BP Pulse Ox 96.8 F 87 16 146/113 98 08/17/19 19:18 08/17/19 19:18 08/17/19 19:18 08/17/19 19:18 08/17/19 19:18 Vital Signs Reviewed: Yes Procedures - Sedation Patient Received Moderate/Deep Sedation with Procedure: No Diagnostics - Vital Signs Vital Signs Temp Pulse Resp BP Pulse Ox 08/17/19 19:18 96.8 F 87 16 146/113 98 - Laboratory Lab Results: Lab Results 08/17/19 Range/Units 20:15 Blood Type A Positive Antibody Screen Pending Lab Statement: Any lab studies that have been ordered have been reviewed, and results considered in the medical decision making process. Re-Evaluation - Re-Evaluation First Eval Re-Evaluation Time: 20:53 Change: Improved Comment: Pt states she is feeling better and wants to be discharged home and away from sick people. Pt will be discahrged after consult with evaluators. Course/Dx - Course Course Of Treatment: This pt is a 19 Y/O F presenting to [facility] with a CC of self -harm. She states that she was recently diagnosed with ario-akgy-mjtie disease and has been having increased depression. She states that she has a rash on her hands, neck, and inside of her mouth. 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 Her PE found that she has few vesicles just adjacent to the R side of her lips. Pt will be discharged home with a Dx of anxiety. - Differential Dx/Clinical Impression Provider Diagnosis: Anxiety Discharge ED - Sign-Out/Discharge Documenting (check all that apply): Patient Departure - discharge - Discharge Plan Condition: Good Disposition: HOME Patient Education Materials: Anxiety (ED) Referrals: [facility] [Outside] Loly Israel NP [Primary Care Provider] - If Needed - Billing Disposition and Condition Condition: GOOD Disposition: Home - Attestation Statements Document Initiated by Scribe: Yes Documenting Scribe: Conor Butler Provider For Whom Scribe is Documenting (Include Credential): Obi Kraus MD Scribe Attestation: IConor, scribed for Obi Kraus MD on 08/18/19 at 0647. Scribe Documentation Reviewed: Yes Provider Attestation: The documentation as recorded by the scribeConor accurately reflects the service I personally performed and the decisions made by me, Obi Kraus MD Status of Scribe Document: Viewed
[2019-08-17 21:12] VITALS: BP 0/0
== END 2019-08-17 21:11 | disposition home or self-care (01) ==
LOC: ED 19:14
DX: F41.9 Anxiety disorder, unspecified (principal); R21 Rash and other nonspecific skin eruption; B08.4 Enteroviral vesicular stomatitis with exanthem; F90.9 Attention-deficit hyperactivity disorder, unspecified type; Z79.899 Other long term (current) drug therapy; Z88.2 Allergy status to sulfonamides; E11.9 Type 2 diabetes mellitus without complications; Z79.84 Long term (current) use of oral hypoglycemic drugs; E66.9 Obesity, unspecified
CPT/HCPCS: 36415; 86850; 86900; 86901; 99282

== ENCOUNTER 2019-08-18 18:44 | Emergency (ER) | payer OTHER ==
--- OUTSIDE RECORDS SUMMARY | 2019-08-18 18:57 | XMS REPORT | Continuity of Care Document ---
:2000 External Reference #:[id number] Author Name CINDY Joseph Address [address] [id number] Care Team Providers Name Role Phone Sean Schwab Family Medicine Care Team Information Museum Registrar [phone] Problems Active Problems Provider Date Bipolar disorder [...] < Unknown 1 year age 16 in half[place]way Smoking Status Reviewed: 07/21/19 Patient is a former smoker quit smoking smoked < 1 year age 16 in [place] Allergies, Adverse Reactions, Alerts Active Allergies Reaction Severity Comments Date Nka 12/25/1999 Sulfamethoxazole / Trimethoprim 07/02/2019 Mirtazapine twitching 07/02/2019 Valproic Acid urticaria 07/02/2019 Medications Active Medications SIG Qnty Indications Ordering Provider Date Gianvi 1 by mouth 84tabs Genie Mtz 08/03/2019 3-0.02mg Tablets every day 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 Clonidine HCL 3 tablets by 90tabs Loly 07/30/2019 0.1mg mouth at CINDY Israel Tablets bedtime Metformin HCL take 1 tablet 60tabs Genie Mtz 850mg by mouth twice Joey MARINE ENGINEER Tablets a day Multivitamin 2 a day Unknown Acetaminophen 2 tablets by Unknown 325mg mouth every 6 Tablets hours as needed Amlodipine Besylate 1 by mouth 30tabs Genie Mtz 2.5mg every day Cook, MARINE ENGINEER Tablets Xyzal 5MG one a day Unknown Latuda 1 tab by mouth Unknown 40mg Tablets every day Atorvastatin Calcium 1 by mouth 30tabs Genie Bibi 10mg every day Cook, MARINE ENGINEER Tablets Tegretol take 1 tablet 120tabs Genie Bibi 200mg Tablets in the morning Cook, MARINE ENGINEER and afternoon, and 2 at bedtime Zoloft 50MG one a day Unknown History Medications Tamiflu Use 1 PO Q.D 7caps Sha Meraz, 05/25/2019 - 75mg Capsules X 7 Days M.D. 07/02/2019 Immunizations CPT Code Status Date Vaccine Lot # [id number] Given 11/16/2014 Meningococcal Conjugate Vaccine,Serogroups For Intramuscular Use 36722 Given 06/21/2010 gardasil 9 39838 Given 02/01/2010 gardasil 9 85396 Given 10/07/2009 Meningococcal Conjugate Vaccine,Serogroups For Intramuscular Use 04396 Given 10/07/2009 Tdap Tetanus, W Pertussis 60339 Given 10/07/2009 gardasil 9 37503 Given 12/18/1999 DTaP & Hib Immunization 17501 Given 12/18/1999 IPV Inactive Poliovirus Vaccine 24989 Given 05/30/1999 MMR Virus Immunization 07772 Given 1998 DTaP Immunization 80954 Given 1998 Comvax Hep B & Hib Immunization 22595 Given 1998 IPV Inactive Poliovirus Vaccine 23325 Given 1998 DTaP Immunization 20030 Given 1998 (Hib) Hemoplilus Influenza B 25877 Given 1998 Inactive Polio Immunization 00078 Given 1998 Hemopholus Influenza B Immunization 29041 Given 1998 DTaP Immunization 55690 Given 1998 Hepatitis B Immunization, [place]-19 Years 90270 Given 1998 Hepatitis B Immunization, -19 Years Vital Signs Date Vital Result Comment 08/18/2019 12:36pm BP Systolic 133 mmHg BP Diastolic 99 mmHg Heart Rate 88 /min Body Temperature 97.3 F Respiratory Rate 15 /min O2 % BldC Oximetry 99 % 08/14/2019 3:33pm BP Systolic 132 mmHg BP Diastolic 100 mmHg Heart Rate 64 /min Body Temperature 97.9 F Respiratory Rate 16 /min Height 67 inches 5'7" Weight 272.12 lb shoes on BMI (Body Mass Index) 42.6 kg/m2 Results Test Acquired Date Facility Test Result H/L Range Note Laboratory test 08/18/2019 [facility] Quickstrep negative Negative finding (607)- - Type & Screen 08/17/2019 [facility] [place] Blood A Positive 1 Type Antibody Screen NEGATIVE Laboratory test 08/14/2019 [facility] Quickstrep negative Negative finding (607)- - CBC Auto Diff 08/06/2019 [facility] [place] White Blood 10.5 10^3/uL Normal 3.5-10.8 Count [...] Cells % 0.0 Comp Metabolic Panel 08/06/2019 [facility] [place] Sodium 138 mmol/L Normal 135-145 Potassium 3.8 [...] Egfr Non- 123.8 >60 Egfr 149.8 >60 2 Laboratory test finding 08/06/2019 [facility] Acetaminophen < 15 g/mL 3 Alcohol < 10 mg/dL Normal <10 Salicylate [...] 0.50-6.00 Free T4 0.52 ng/dL Low 0.75-1.54 4 CK 79 U/L 26-140 CBC Electronic Fma 07/21/2019 Alex Renee(a) WBC 9.9 x10^3/UL 4.0- 10.0 RBC 4.62 x10^6/UL 3.93-6.00 HGB 13.4 g/dL 12.0-17.0 HCT 41 % 35-50 MCV 88.3 fL 80.0-95.0 MCH 29.0 pg 25.6-32.2 MCHC 32.8 g/dL 32.2-36.0 RDW-CV 13.4 % 11.6-14.4 PLT 433 x10^3/UL High 163-400 5 MPV 9.1 fL Low 9.4-12.4 Carla# 6.46 x10^3/UL High 1.56-6.13 Lymph# 2.72 x10^3/UL 1.18-3.74 Ellis# 0.59 x10^3/UL 0.24-0.82 Eos # 0.1 x10^3/UL 0.0-0.5 Baso # 0.02 x10^3/UL 0.01-0.08 Carla% 65.0 % 34.0-70.0 Lymph % 27.4 % 20.0-52.0 Ellis% 5.9 % 5.0-12.0 Eos% 1.3 % 0.7-7.0 Baso% 0.2 % 0.1-1.2 Laboratory test 07/21/2019 [facility] Hemoglobin A1c (Fma) 4.9 % 4.1-5.7 finding (607)- - 1 MHE PER PT 2 Because ethnic data is not always readily [...] 15-29 5 Kidney failure <15 (or dialysis) 3 Therapeutic concentration: <50 ug/mL Toxic concentration: >120 ug/mL 4 RESULTS VERIFIED BY REPEAT ANALYSIS 5 RESULTS VERIFIED BY REPEAT ANALYSIS Procedures Date Code Description Status 07/21/2019 31911 Vision Test- screening test of visual acuity, Completed quantitative, bila Medical Devices Description No Information Available Encounters Type Date Location Provider Dx Diagnosis Office Visit 08/14/2019 Main Office Loly Israel, J02.9 Acute pharyngitis, 3:30p SLIP MIXER unspecified B97.11 Coxsackievirus as the cause of diseases classified elsewhere Office Visit 07/21/2019 10:00a Main Office Genie Mtz G40.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, not Cook, MARINE ENGINEER intractable, without status epilepticus F31.81 Bipolar II disorder E66.9 Obesity, unspecified E28.2 Polycystic ovarian syndrome E78.5 Hyperlipidemia, unspecified I10 Essential (primary) hypertension J30.9 Allergic rhinitis, unspecified K75.81 Nonalcoholic steatohepatitis ([place]) E88.81 Metabolic syndrome F71 Moderate intellectual disabilities Z00.00 Encntr for general adult medical exam w/o abnormal findings Office Visit 07/02/2019 10:15a [facility] Loly M79.645 Pain in left Jhonatan, SLIP MIXER finger(s) Assessments Date Code Description Provider 08/18/2019 J02.9 Acute pharyngitis, unspecified Loly Jhonatan, SLIP MIXER 08/14/2019 J02.9 Acute pharyngitis, unspecified Loly Jhonatan, SLIP MIXER 08/14/2019 B97.11 Coxsackievirus as the cause of diseases Loly Jhonatan , SLIP MIXER classified elsewhere 07/21/2019 G40.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, not intractable, without Genie Bibi Cook, MARINE ENGINEER status epilepticus 07/21/2019 F31.81 Bipolar II disorder [...] left finger(s) CINDY Joseph Plan of Treatment 08/18/2019 - CINDY JosephJ02.9 Acute pharyngitis, unspecifiedComments: It's still not strep. Nor does it share any of the usual symptoms consistent with COVID, or FLU for that matterI know you're miserable, I am not sure I can make that go awayPush fluids, especially warmfluids with honey and lemonTry gargling with salt water-- it soothes your throatTylenol 500-1000 mg every 8 hoursibuprofen 600-800 mg every 8-10 hoursIf you alternate between ibuprofen and Tylenol every 2-3 hours, you'll always have something to take for the discomfort and pain Rest, steamy showers, put your head over hot boiling water and breatheI expect this to take 4-5 more days to clear entirely;given the current situation, you've got nothing but timeI know you're sick of ice creamHow about plain noodles? Mashed potatoe? Applesauce? Yogurt, sorbet, oatmeal, cup of soup/ramen noodles, banana, baked apples, canned peaches or other soft fruitPlain rice with bit of butter/broth Functional Status Description No Information Available Mental Status Description No Information Available Referrals Description No Information Available
--- NOTE | 2019-08-18 19:13 | ED ---
Psychiatric Complaint - HPI Summary HPI Summary: Patient is a 19 y/o F presenting to [facility] under 941 status by police. It is reported that the patient ran away from her home. She lives with her grandparents. Family called police. Patient states that she ran away because she feels anxious. She denies SI and HI. Patient also reports sore throat and currently has hand/foot/mouth disease. Home medications and allergies are reviewed. Home Medications Medication Instructions Recorded Confirmed Type Vitamin THERAPEUTIC TAB* 1 tab PO DAILY #30 tab 07/10/16 08/06/19 Rx [Theragran TAB*] cloNIDine TAB* [Catapres 0.1 MG 0.3 mg PO QPM #90 tab 07/10/16 08/06/19 Rx TAB*] Ibuprofen TAB* [Motrin TAB* 800 MG] 400 mg PO Q6H PRN 05/19/17 08/06/19 History Amlodipine 2.5 mg TAB (NF) 2.5 mg PO DAILY 08/06/19 08/06/19 History Atorvastatin* [Lipitor*] 10 mg PO BEDTIME 08/06/19 08/06/19 History Ethinyl Estradiol/Drospirenone 1 tab PO DAILY 08/06/19 08/06/19 History [Gianvi 3-0.02 mg] Prazosin 1 mg CAP [Minipress 1 mg 1 mg PO DAILY #20 cap 08/06/19 Rx CAP] carBAMazepine TAB(*) [TEGretol 400 mg PO BEDTIME 08/06/19 08/06/19 History TAB(*)] carBAMazepine TAB(*) [Tegretol 200 mg PO BID 08/06/19 08/06/19 History TAB(*)] hydrOXYzine HCL TAB* [Atarax 25 MG 25 mg PO DAILY 08/06/19 08/06/19 History TAB*] metFORMIN* [Glucophage 850 MG TAB 850 mg PO BID 08/06/19 08/06/19 History *] - History Of Current Complaint Chief Complaint: EDPsychosocial Time Seen by Provider: 08/18/19 19:11 Hx Obtained From: Patient Hx Last Menstrual Period: unknow Onset/Duration: Still Present Timing: Constant Character: Anxious Has Suicidal: Denies: Thoughts Has Homicidal: Denies: Thoughts - Allergies/Home Medications Allergies/Adverse Reactions: Allergies Allergy/AdvReac Type Severity Reaction Status Date / Time divalproex sodium Allergy Unknown Verified 08/18/19 18:55 [From Depakote] Reaction Details phenytoin [From Dilantin] Allergy Unknown Verified 08/18/19 18:55 Reaction Details silver sulfadiazine Allergy Rash And Verified 08/18/19 18:55 [From Silvadene] Itching Sulfa (Sulfonamide Allergy Rash And Verified 08/18/19 18:55 Antibiotics) Itching sulfamethoxazole Allergy Rash Verified 08/18/19 18:55 [From Bactrim] trimethoprim [From Bactrim] Allergy Rash Verified 08/18/19 18:55 Home Medications: Home Medications Vitamin THERAPEUTIC TAB* [Theragran TAB*] 1 tab PO DAILY #30 tab 07/10/16 [Rx Confirmed 08/06/19] cloNIDine TAB* [Catapres 0.1 MG TAB*] 0.3 mg PO QPM #90 tab 07/10/16 [Rx Confirmed 08/06/19] Ibuprofen TAB* [Motrin TAB* 800 MG] 400 mg PO Q6H PRN 05/19/17 [History Confirmed 08/06/19] Amlodipine 2.5 mg TAB (NF) 2.5 mg PO DAILY 08/06/19 [History Confirmed 08/06/19] Atorvastatin* [Lipitor*] 10 mg PO BEDTIME 08/06/19 [History Confirmed 08/06/19] Ethinyl Estradiol/Drospirenone [Gianvi 3-0.02 mg] 1 tab PO DAILY 08/06/19 [ History Confirmed 08/06/19] Prazosin 1 mg CAP [Minipress 1 mg CAP] 1 mg PO DAILY #20 cap 08/06/19 [Rx] carBAMazepine TAB(*) [TEGretol TAB(*)] 400 mg PO BEDTIME 08/06/19 [History Confirmed 08/06/19] carBAMazepine TAB(*) [Tegretol TAB(*)] 200 mg PO BID 08/06/19 [History Confirmed 08/06/19] hydrOXYzine HCL TAB* [Atarax 25 MG TAB*] 25 mg PO DAILY 08/06/19 [History Confirmed 08/06/19] metFORMIN* [Glucophage 850 MG TAB *] 850 mg PO BID 08/06/19 [History Confirmed 08/06/19] PMH/Surg Hx/FS Hx/Imm Hx Endocrine/Hematology History: Reports: Hx Diabetes - prediabetic - takes metformin, Other Endocrine/Hematological Disorders - obesity Denies: Hx Anticoagulant Therapy, Hx Blood Disorders, Hx Anemia Cardiovascular History: Reports: Hx Hypertension - amlodipine Denies: Other Cardiovascular Problems/Disorders Respiratory History: Reports: Hx Pneumonia, Hx Seasonal Allergies Denies: Hx Asthma, Hx Chronic Bronchitis, Hx Chronic Obstructive Pulmonary Disease (COPD), Hx Cystic Fibrosis, Hx Lung Cancer, Hx Pleural Effusion, Hx Pulmonary Edema, Hx Pulmonary Embolism, Hx Sleep Apnea, Other Respiratory Problems/Disorders GI History: Reports: Other GI Disorders - elevated LFTs - on statin Denies: Hx Cirrhosis, Hx Crohn's Disease, Hx Irritable Bowel History: Denies: Hx Kidney Stones Musculoskeletal History: Reports: Hx Orthopedic Injury - Left foot fracture, Other Musculoskeletal History - Scheuermann's Disease Denies: Hx Arthritis, Hx Back Problems, Hx Bursitis, Hx Fibromyalgia, Hx Gout , Hx Osteoporosis, Hx Scoliosis, Hx Tendonitis Sensory History: Reports: Hx Contacts or Glasses - Pt has glasses with her Denies: Hx Cataracts, Hx Eye Injury, Hx Eye Prosthesis, Hx Glaucoma, Hx Legally Blind, Hx Macular Degeneration, Hx Vision Problem, Other Sensory Impairments Opthamlomology History: Reports: Hx Contacts or Glasses - Pt has glasses with her Denies: Hx Cataracts, Hx Eye Injury, Hx Eye Prosthesis, Hx Glaucoma, Hx Legally Blind, Hx Macular Degeneration, Hx Vision Problem, Other Sensory Impairments Neurological History: Reports: Hx Developmental Delay, Hx Headaches, Hx Seizures - myoclonal (recent onset) Denies: Hx Dementia, Hx Migraine, Hx Nerve Disease, Hx Spinal Cord Injury, Hx Transient Ischemic Attacks (TIA), Other Neuro Impairments/Disorders Psychiatric History: Reports: Hx Anxiety, Hx Attention Deficit Hyperactivity Disorder, Hx Depression, Hx Panic Disorder, Hx Post Traumatic Stress Disorder, Hx Inpatient Treatment, Hx Community Mental Health Tx, Hx Bipolar Disorder, Hx of Violent Episodes Against Others - Hits people/throws things, Other Psychiatric Issues/Disorders - Ingesting non-edible items (i.e.-mattress foam, shoelaces) Denies: Hx Eating Disorder, Hx Schizophrenia, Hx Suicide Attempt, Hx Substance Abuse - Cancer History Hx Chemotherapy: No Hx Radiation Therapy: No - Surgical History Surgery Procedure, Year, and Place: Oral Surgery 2002, Left Foot Post Fracture Hx Anesthesia Reactions: No Infectious Disease History: No Infectious Disease History: Denies: Hx Clostridium Difficile, Hx Hepatitis, Hx Human Immunodeficiency Virus (HIV), Hx of Known/Suspected MRSA, Hx Tuberculosis, History Other Infectious Disease, Traveled Outside the [place] in Last 30 Days - Family History Known Family History: Positive: Seizure Disorder - Uncle and second cousin - Social History Alcohol Use: None Hx Substance Use: No Substance Use Type: Reports: None Hx Tobacco Use: No Smoking Status (MU): Never Smoked Tobacco Review of Systems Positive: Sore Throat Psychological: Other - negative - SI/HI Positive: Anxious All Other Systems Reviewed And Are Negative: Yes Physical Exam - Summary Physical Exam Summary: Appearance: Well-appearing, Well-nourished, lying in bed comfortable Skin: Warm, dry, no obvious rash Eyes: sclera anicteric, no conjunctival pallor HENT: mucous membranes moist Neck: deferred Respiratory: No signs of respiratory distress Cardiovascular: Appears well perfused, pulses are nml Abdomen: deferred Musculoskeletal: Moving all 4 extremities without obvious discomfort Neurological: Awake and alert, mentation is normal, speech is fluent and appropriate Psychiatric: affect is normal, does not appear anxious or depressed Triage Information Reviewed: Yes Vital Signs On Initial Exam: Initial Vitals Temp Pulse Resp BP Pulse Ox 99.2 F 89 18 171/112 100 08/18/19 18:45 08/18/19 18:45 08/18/19 18:45 08/18/19 18:45 08/18/19 18:45 Vital Signs Reviewed: Yes Procedures - Sedation Patient Received Moderate/Deep Sedation with Procedure: No Diagnostics - Vital Signs Vital Signs Temp Pulse Resp BP Pulse Ox 08/18/19 18:45 99.2 F 89 18 171/112 100 - Laboratory Lab Statement: Any lab studies that have been ordered have been reviewed, and results considered in the medical decision making process. Course/Dx - Course Course Of Treatment: Patient is a 19 y/o F presenting to [facility] under 941 status by police. It is reported that the patient ran away from her home. She lives with her grandparents. Family called police. Patient states that she ran away because she feels anxious. She denies SI and HI. Physical exam is unremarkable. As the patient denies HI and SI and only states that she is anxious, she will be discharged to home. - Differential Dx/Clinical Impression Provider Diagnosis: Anxiety Discharge ED - Sign-Out/Discharge Documenting (check all that apply): Patient Departure - discharge - Discharge Plan Condition: Stable Disposition: HOME Patient Education Materials: Anxiety (ED) Referrals: [facility] [Outside] - 3 Days Loly Israel NP [Primary Care Provider] - 3 Days Additional Instructions: PLEASE RETURN TO ED FOR ANY NEW OR WORSENING SYMPTOMS. PLEASE FOLLOWUP WITH YOUR PRIMARY CARE PHYSICIAN WITHIN THREE DAYS. - Billing Disposition and Condition Condition: STABLE Disposition: Home - Attestation Statements Document Initiated by Tucker: Yes Documenting Scribe: CRYSTAL EASON Provider For Whom Tucker is Documenting (Include Credential): DANIEL BURCH MD Scribe Attestation: ICRYSTAL, misaelibed for DANIEL BURCH MD on 08/18/19 at 2037. Scribe Documentation Reviewed: Yes Provider Attestation: The documentation as recorded by the CRYSTAL da silva accurately reflects the service I personally performed and the decisions made by me, DANIEL BURCH MD Status of Scribe Document: Viewed
[2019-08-18 19:35] VITALS: BP 160/96
== END 2019-08-18 19:33 | disposition home or self-care (01) ==
LOC: ED 18:44
DX: F41.9 Anxiety disorder, unspecified (principal); J02.9 Acute pharyngitis, unspecified; I10 Essential (primary) hypertension; F32.9 Major depressive disorder, single episode, unspecified; Z79.899 Other long term (current) drug therapy; Z79.84 Long term (current) use of oral hypoglycemic drugs; Z88.2 Allergy status to sulfonamides; Z88.8 Allergy status to other drugs, medicaments and biological substances
CPT/HCPCS: 99282

== ENCOUNTER 2019-08-28 17:52 | Emergency (ER) | payer OTHER ==
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
[2019-08-28 18:51] LABS: ABS Basophils 0.1 10^3/ul (0-0.2); ABS Eosinophils 0.1 10^3/ul (0-0.6); ABS Lymphocytes 2.8 10^3/ul (1.0-4.8); ABS Monocytes 0.3 10^3/ul (0-0.8); ABS Neutrophils 6.7 10^3/ul (1.5-7.7); Eosinophil % 0.6 %; Hematocrit 42 % (35-47); Hemoglobin 13.9 g/dL (12.0-16.0); Mean Corpuscular HGB Conc 33 g/dL (31-36); Mean Corpuscular Hemoglobin 29 pg (27-31); Mean Corpuscular Volume 87 fL (80-97); Mean Platelet Volume 6.6 fL (7.4-10.4); Platelet Count 438 10^3/uL (150-450); Red Blood Count 4.85 10^6 /uL (3.70-4.87); Red Cell Distribution Width 14 % (10-15); White Blood Count 9.9 10^3/uL (3.5-10.8)
[2019-08-28 19:12] LABS: ALT 39 U/L (7-52); AST 39 U/L (13-39); Albumin 4.4 g/dL (3.2-5.2); Albumin/Globulin Ratio 1.2 (1-3); Alkaline Phosphatase 100 U/L (34-104); Anion Gap 11 mmol/L (2-11); BUN/Creatinine Ratio 16.7 (8-20); Blood Urea Nitrogen 12 mg/dL (6-24); CO2 Carbon Dioxide 26 mmol/L (22-32); Calcium 9.8 mg/dL (8.6-10.3); Chloride 100 mmol/L (101-111); EGFR African American 123.7 (>60); EGFR Non-African American 102.3 (>60); Globulin 3.8 g/dL (2-4); Glucose 139 mg/dL (70-100); Potassium 4.1 mmol/L (3.5-5.0); Sodium 137 mmol/L (135-145); Total Protein 8.2 g/dL (6.4-8.9)
[2019-08-28 19:21] LABS: Acetaminophen < 15 mcg/mL; Alcohol < 10 mg/dL (<10); Salicylate < 2.50 mg/dL (<30)
[2019-08-28 19:36] LABS: TSH (Thyroid Stimulating Horm) 1.13 mcIU/mL (0.34-5.60)
[2019-08-28 19:59] LABS: Urine Appearance Cloudy; Urine Bilirubin Negative (Negative); Urine Blood 2+ (Negative); Urine Color Yellow; Urine Glucose Negative (Negative); Urine Ketones Negative (Negative); Urine Nitrite Negative (Negative); Urine Protein Negative (Negative); Urine Specific Gravity 1.009 (1.010-1.030); Urine Urobilinogen Negative (Negative)
[2019-08-28 20:10] LABS: Urine Bacteria 1+ (Absent); Urine Red Blood Cell Trace(0-2/hpf) (Absent); Urine Squamous Epithelial Cell Present (Absent); Urine White Blood Cell Trace(0-5/hpf) (Absent)
[2019-08-28 20:29] LABS: Urine Benzodiazepine Screen None Detected (None Detect); Urine Opiates Screen None Detected (None Detect)
[2019-08-28 21:13] VITALS: BP 147/97
== END 2019-08-28 21:12 | disposition home or self-care (01) ==
LOC: ED 17:52
DX: F63.9 Impulse disorder, unspecified (principal); R44.0 Auditory hallucinations; F41.9 Anxiety disorder, unspecified; R45.850 Homicidal ideations; R73.03 Prediabetes; F17.210 Nicotine dependence, cigarettes, uncomplicated; F32.9 Major depressive disorder, single episode, unspecified; Z79.84 Long term (current) use of oral hypoglycemic drugs; Z79.899 Other long term (current) drug therapy; Z88.2 Allergy status to sulfonamides; Z88.8 Allergy status to other drugs, medicaments and biological substances
CPT/HCPCS: 36415; 80053; 80307; 80320; 80329; 81003; 81015; 84443; 85025; 87086; 99284; G0480

== ENCOUNTER 2019-08-29 17:29 | Emergency (ER) | payer OTHER ==
--- NOTE | 2019-08-29 17:41 | ED ---
Psychiatric Complaint - HPI Summary HPI Summary: 19 year old F [facility] with a chief complaint of homicidal ideations. The patient edilia pictures depicting burying her grandparents. Patient reports some toe pain secondary to stubbing her left great toe. Medication list reviewed. Allergy list reviewed. - History Of Current Complaint Chief Complaint: EDMentalHealth Time Seen by Provider: 08/29/19 17:36 Hx Obtained From: Patient Onset/Duration: Still Present Timing: Constant Has Homicidal: Reports: Thoughts - Allergies/Home Medications Allergies/Adverse Reactions: Allergies Allergy/AdvReac Type Severity Reaction Status Date / Time divalproex sodium Allergy Unknown Verified 08/18/19 18:55 [From Depakote] Reaction Details phenytoin [From Dilantin] Allergy Unknown Verified 08/18/19 18:55 Reaction Details silver sulfadiazine Allergy Rash And Verified 08/18/19 18:55 [From Silvadene] Itching Sulfa (Sulfonamide Allergy Rash And Verified 08/18/19 18:55 Antibiotics) Itching sulfamethoxazole Allergy Rash Verified 08/18/19 18:55 [From Bactrim] trimethoprim [From Bactrim] Allergy Rash Verified 08/18/19 18:55 Home Medications: Home Medications Vitamin THERAPEUTIC TAB* [Theragran TAB*] 1 tab PO DAILY #30 tab 07/10/16 [Rx Confirmed 08/28/19] cloNIDine TAB* [Catapres 0.1 MG TAB*] 0.3 mg PO QPM #90 tab 07/10/16 [Rx Confirmed 08/28/19] Ibuprofen TAB* [Motrin TAB* 800 MG] 400 mg PO Q6H PRN 05/19/17 [History Confirmed 08/28/19] Amlodipine 2.5 mg TAB (NF) 2.5 mg PO DAILY 08/06/19 [History Confirmed 08/28/19] Atorvastatin* [Lipitor*] 10 mg PO BEDTIME 08/06/19 [History Confirmed 08/28/19] Ethinyl Estradiol/Drospirenone [Gianvi 3-0.02 mg] 1 tab PO DAILY 08/06/19 [ History Confirmed 08/28/19] Prazosin 1 mg CAP [Minipress 1 mg CAP] 1 mg PO DAILY #20 cap 08/06/19 [Rx Confirmed 08/28/19] carBAMazepine TAB(*) [TEGretol TAB(*)] 400 mg PO BEDTIME 08/06/19 [History Confirmed 08/28/19] carBAMazepine TAB(*) [Tegretol TAB(*)] 200 mg PO BID 08/06/19 [History Confirmed 08/28/19] hydrOXYzine HCL TAB* [Atarax 25 MG TAB*] 25 mg PO DAILY 08/06/19 [History Confirmed 08/28/19] metFORMIN* [Glucophage 850 MG TAB *] 850 mg PO BID 08/06/19 [History Confirmed 08/28/19] PMH/Surg Hx/FS Hx/Imm Hx Endocrine/Hematology History: Reports: Hx Diabetes - prediabetic - takes metformin, Other Endocrine/Hematological Disorders - obesity Denies: Hx Anticoagulant Therapy, Hx Blood Disorders, Hx Anemia Cardiovascular History: Reports: Hx Hypertension - amlodipine Denies: Other Cardiovascular Problems/Disorders Respiratory History: Reports: Hx Pneumonia, Hx Seasonal Allergies Denies: Hx Asthma, Hx Chronic Bronchitis, Hx Chronic Obstructive Pulmonary Disease (COPD), Hx Cystic Fibrosis, Hx Lung Cancer, Hx Pleural Effusion, Hx Pulmonary Edema, Hx Pulmonary Embolism, Hx Sleep Apnea, Other Respiratory Problems/Disorders GI History: Reports: Other GI Disorders - elevated LFTs - on statin Denies: Hx Cirrhosis, Hx Crohn's Disease, Hx Irritable Bowel History: Denies: Hx Kidney Stones Musculoskeletal History: Reports: Hx Orthopedic Injury - Left foot fracture, Other Musculoskeletal History - Scheuermann's Disease Denies: Hx Arthritis, Hx Back Problems, Hx Bursitis, Hx Fibromyalgia, Hx Gout , Hx Osteoporosis, Hx Scoliosis, Hx Tendonitis Sensory History: Reports: Hx Contacts or Glasses - Pt has glasses with her Denies: Hx Cataracts, Hx Eye Injury, Hx Eye Prosthesis, Hx Glaucoma, Hx Legally Blind, Hx Macular Degeneration, Hx Vision Problem, Other Sensory Impairments Opthamlomology History: Reports: Hx Contacts or Glasses - Pt has glasses with her Denies: Hx Cataracts, Hx Eye Injury, Hx Eye Prosthesis, Hx Glaucoma, Hx Legally Blind, Hx Macular Degeneration, Hx Vision Problem, Other Sensory Impairments Neurological History: Reports: Hx Developmental Delay, Hx Headaches, Hx Seizures - myoclonal (recent onset) Denies: Hx Dementia, Hx Migraine, Hx Nerve Disease, Hx Spinal Cord Injury, Hx Transient Ischemic Attacks (TIA), Other Neuro Impairments/Disorders Psychiatric History: Reports: Hx Anxiety, Hx Attention Deficit Hyperactivity Disorder, Hx Depression, Hx Panic Disorder, Hx Post Traumatic Stress Disorder, Hx Inpatient Treatment, Hx Community Mental Health Tx, Hx Bipolar Disorder, Hx of Violent Episodes Against Others - Hits people/throws things, Other Psychiatric Issues/Disorders - Ingesting non-edible items (i.e.-mattress foam, shoelaces) Denies: Hx Eating Disorder, Hx Schizophrenia, Hx Suicide Attempt, Hx Substance Abuse - Cancer History Hx Chemotherapy: No Hx Radiation Therapy: No - Surgical History Surgery Procedure, Year, and Place: Oral Surgery 2002, Left Foot Post Fracture Hx Anesthesia Reactions: No Infectious Disease History: Denies: Hx Clostridium Difficile, Hx Hepatitis, Hx Human Immunodeficiency Virus (HIV), Hx of Known/Suspected MRSA, Hx Tuberculosis, History Other Infectious Disease - Family History Known Family History: Positive: Seizure Disorder - Uncle and second cousin - Social History Alcohol Use: Rare Alcohol Amount: states 1x per year Hx Substance Use: No Substance Use Type: Reports: None Hx Tobacco Use: Yes Smoking Status (MU): Light Every Day Tobacco Smoker Review of Systems Positive: Other - Left great toe pain Positive: Other - Homicidal ideations All Other Systems Reviewed And Are Negative: Yes Physical Exam - Summary Physical Exam Summary: General: Well appearing, no distress HEENT: PERRL Cardiovascular: Skin is well perfused Pulmonary: No respiratory distress, no tachypnea Abdomen: Non-distended Skin: Warm, pink, dry MSK: No edema, left great toe: old scar with tenderness over the MTP Psych: Normal affect Neuro: A&Ox3 Triage Information Reviewed: Yes Vital Signs Reviewed: Yes Procedures - Sedation Patient Received Moderate/Deep Sedation with Procedure: No Diagnostics - Laboratory Lab Statement: Any lab studies that have been ordered have been reviewed, and results considered in the medical decision making process. - Radiology Toe x-ray Radiology Interpretation Completed By: ED Physician Summary of Radiographic Findings: No fracture. ED physician has reviewed and interpreted this report. Course/Dx - Course Course Of Treatment: Patient presenting for mental health clearance. Patient has no active medical conditions warrantly further w/u, vital signs are stable. Patient had reported toe pain, x-ray negative. Patient placed in mental health gown and placed on observation. We'll obtain mental health evaluation. - Differential Dx/Clinical Impression Provider Diagnosis: Behavioral disorder Discharge ED - Sign-Out/Discharge Documenting (check all that apply): Sign-Out Patient Signing out patient TO: Harinder Lora - pending MHE - Discharge Plan Condition: Stable Referrals: Loly Israel NP [Primary Care Provider] - - Billing Disposition and Condition Condition: STABLE - Attestation Statements Document Initiated by Scribe: Yes Documenting Scribe: Luiza Mccain Provider For Whom Scribe is Documenting (Include Credential): Ismael Shen MD Scribe Attestation: Luiza Perrin, scrngoced for Ismael Shen MD on 08/29/19 at 1840. Scribe Documentation Reviewed: Yes Provider Attestation: The documentation as recorded by the Luiza da silva accurately reflects the service I personally performed and the decisions made by Ismael sheehan MD Status of Scribe Document: Viewed
--- NOTE | 2019-08-29 19:26 | ED ---
Progress - Progress Note Progress Note: Patient is received as a sign-out from Dr. Shen pending MHE and disposition of this mental health patient. 1917 - Patient's case has been reviewed by Dr. Ritchie, patient to be discharged to home with Dx of anxiety disorder. Course/Dx - Course Course Of Treatment: Patient is received as a sign-out from Dr. Shen pending MHE and disposition of this mental health patient. 1917 - Patient's case has been reviewed by Dr. Ritchie, patient to be discharged to home with Dx of anxiety disorder. - Diagnoses Provider Diagnoses: Anxiety disorder - Provider Notifications Discussed Care Of Patient With: Rogelio Ritchie Time Discussed With Above Provider: 19:18 Instructed by Provider To: Other - 1917 - Patient's case has been reviewed by Dr. Ritchie, patient to be discharged to home with Dx of anxiety disorder. Discharge ED - Sign-Out/Discharge Documenting (check all that apply): Patient Departure - discharge , Receiving Sign-Out Receiving patient FROM: Ismael Shen - Discharge Plan Condition: Stable Disposition: HOME Patient Education Materials: Anxiety (ED) Referrals: Loly Israel NP [Primary Care Provider] - Additional Instructions: Per completion of a mental health evaluation, you are cleared for release and do not require inpatient psychiatric hospitalization at this time. Please go to nearest emergency room or call 911 if safety concerns arise or condition worsens. Important Phone Numbers: [facility] ph:[phone] Su[facility] Prevention [facility] Crisis Services ph:[phone] National Suicide Prevention Lifeline ph:[phone]- [facility] (6705) [facility] ph:[phone] Alcoholics Anonymous ph: [facility] ph:[phone] [place] [employer] ph:[phone] Recommendation: Follow up with [facility] on Saturday . - Billing Disposition and Condition Condition: STABLE Disposition: Home - Attestation Statements Document Initiated by Scribe: Yes Documenting Scribe: CRYSTAL EASON Provider For Whom Scribe is Documenting (Include Credential): DANNY SELF MD Scribe Attestation: CRYSTAL Perrin, scribed for DANNY SELF MD on 08/29/19 at 2126. Scribe Documentation Reviewed: Yes Provider Attestation: The documentation as recorded by the scribeCRYSTAL accurately reflects the service I personally performed and the decisions made by me, DANNY SELF MD Status of Scribe Document: Viewed
[2019-08-29 19:30] VITALS: BP 146/86
== END 2019-08-29 19:29 | disposition home or self-care (01) ==
LOC: ED 17:29
DX: F91.9 Conduct disorder, unspecified (principal); F41.9 Anxiety disorder, unspecified; R73.03 Prediabetes; I10 Essential (primary) hypertension; R51 Headache; F17.210 Nicotine dependence, cigarettes, uncomplicated; R45.850 Homicidal ideations; Z79.899 Other long term (current) drug therapy; Z79.84 Long term (current) use of oral hypoglycemic drugs; Z88.2 Allergy status to sulfonamides
CPT/HCPCS: 99283

== ENCOUNTER 2019-09-02 11:00 | Emergency (ER) | payer OTHER ==
--- NOTE | 2019-09-02 11:03 | UC ---
Upper Extremity HPI - HPI Summary HPI Summary: 19 yo female presents with RIGHT arm injury. She tells me that 3 days ago she was at home and tripped walking in the house and, with her arms outstretched, hit her right forearm against a stool in front of her. Since that time has had pain in her mid forearm. Has been using an ÓSCAR wrap, which helps. Has been taking tylenol and aleve with no relief. She has some radiation of pain into her right wrist. She denies numbness or tingling. She is right handed. - History of Current Complaint Stated Complaint: ARM INJURY Time Seen by Provider: 09/02/19 11:03 Hx Obtained From: Patient Hx Last Menstrual Period: unknow Onset/Duration: Sudden Onset Severity Initially: Moderate Severity Currently: Moderate Pain Intensity: 6 Pain Scale Used: 0-10 Numeric - Allergies/Home Medications Allergies/Adverse Reactions: Allergies Allergy/AdvReac Type Severity Reaction Status Date / Time divalproex sodium Allergy Unknown Verified 09/02/19 11:12 [From Depakote] Reaction Details phenytoin [From Dilantin] Allergy Unknown Verified 09/02/19 11:12 Reaction Details silver sulfadiazine Allergy Rash And Verified 09/02/19 11:12 [From Silvadene] Itching Sulfa (Sulfonamide Allergy Rash And Verified 09/02/19 11:12 Antibiotics) Itching sulfamethoxazole Allergy Rash Verified 09/02/19 11:12 [From Bactrim] trimethoprim [From Bactrim] Allergy Rash Verified 09/02/19 11:12 Home Medications: Home Medications Vitamin THERAPEUTIC TAB* [Theragran TAB*] 1 tab PO DAILY #30 tab 07/10/16 [Rx Confirmed 09/02/19] cloNIDine TAB* [Catapres 0.1 MG TAB*] 0.3 mg PO QPM #90 tab 07/10/16 [Rx Confirmed 09/02/19] Amlodipine 2.5 mg TAB (NF) 2.5 mg PO DAILY 08/06/19 [History Confirmed 09/02/19] Atorvastatin* [Lipitor*] 10 mg PO BEDTIME 08/06/19 [History Confirmed 09/02/19] Ethinyl Estradiol/Drospirenone [Gianvi 3-0.02 mg] 1 tab PO DAILY 08/06/19 [ History Confirmed 09/02/19] Prazosin 1 mg CAP [Minipress 1 mg CAP] 1 mg PO DAILY #20 cap 08/06/19 [Rx Confirmed 09/02/19] carBAMazepine TAB(*) [TEGretol TAB(*)] 400 mg PO BEDTIME 08/06/19 [History Confirmed 09/02/19] carBAMazepine TAB(*) [Tegretol TAB(*)] 200 mg PO BID 08/06/19 [History Confirmed 09/02/19] hydrOXYzine HCL TAB* [Atarax 25 MG TAB*] 25 mg PO DAILY 08/06/19 [History Confirmed 09/02/19] metFORMIN* [Glucophage 850 MG TAB *] 850 mg PO BID 08/06/19 [History Confirmed 09/02/19] Acetaminophen [Tylenol Extra Strength] 1,000 mg PO PRN 09/02/19 [History] PMH/Surg Hx/FS Hx/Imm Hx - Additional Past Medical History Additional PMH: Seizure ADHD PTSD Intellectual disability Other History Of: Negative For: Anticoagulant Therapy - Surgical History Surgical History: Yes Surgery Procedure, Year, and Place: Oral Surgery 2002, Left Foot Post Fracture - Family History Known Family History: Positive: Seizure Disorder - Uncle and second cousin - Social History Lives: With Family Alcohol Use: Rare Alcohol Amount: states 1x per year Substance Use Type: None Substance Use Comment - Amount & Last Used: Pt states CBD oil use Smoking Status (MU): Light Every Day Tobacco Smoker - Immunization History Most Recent Influenza Vaccination: 01/2016 Most Recent Tetanus Shot: up to date Most Recent Pneumonia Vaccination: Never Vaccination Up to Date: Yes Review of Systems All Other Systems Reviewed And Are Negative: No Constitutional: Positive: Negative Skin: Positive: Negative Respiratory: Positive: Negative Cardiovascular: Positive: Negative Neurovascular: Positive: Negative Musculoskeletal: Positive: Other: - Right forearm injury Neurological/Mental Status: Positive: Negative Psychological: Positive: Negative Physical Exam - Summary Physical Exam Summary: GENERAL: NAD. WDWN. No pain distress. SKIN: No rashes, sores, lesions, or open wounds. CHEST: No accessory muscle use. Breathing comfortably and in no distress. CV: Pulses intact radial and ulnar. Cap refill <2seconds MSK: RIGHT FOREARM: Mild ttp about dorsal mid forearm without specific point tenderness. No edema. FROM and nttp at right elbow and right wrist. 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 NEURO: Alert. Sensations intact hand and all fingers. PSYCH: Age appropriate behavior. Triage Information Reviewed: Yes Vital Signs: Vital Signs: Temp Pulse Resp BP Pulse Ox 97.4 F 94 16 145/90 100 09/02/19 11:04 09/02/19 11:04 09/02/19 11:04 09/02/19 11:04 09/02/19 11:04 Vital Signs Reviewed: Yes Diagnostics - Radiology Forearm XR Radiology Interpretation Completed By: Radiologist Summary of Radiographic Findings: IMPRESSION: NO ACUTE OSSEOUS INJURY. IF SYMPTOMS PERSIST, RECOMMEND REPEAT IMAGING. Upper Extremity Course/Dx - Course Course Of Treatment: XR negative. Suspect contusion of arm. Advised to continue RICE therapy. She was given an ÓSCAR wrap and cock-up splint in the clinic for her discomfort and advised to use these prn. Recheck if no improvement within 1 week - Differential Dx/Diagnosis Provider Diagnosis: Right arm pain Discharge ED - Sign-Out/Discharge Documenting (check all that apply): Patient Departure All imaging exams completed and their final reports reviewed: Yes - Discharge Plan Condition: Stable Disposition: HOME Patient Education Materials: Contusion in Adults (ED) Referrals: Loly Israel NP [Primary Care Provider] - Additional Instructions: The X-ray of your arm was normal today. Please continue to rest and apply ice to your arm to decrease pain. Use the ÓSCAR wrap and cock-up splint for comfort as needed. May continue to take ibuprofen as directed for discomfort. If your symptoms do not improve within 1 week - please be rechecked by your primary doctor - Billing Disposition and Condition Condition: STABLE Disposition: Home - Attestation Statements Provider Attestation: I was available for consult. This patient was seen by the MONIE. The patient was not presented to, seen by, or examined by me. -Tali
[2019-09-02 11:11] VITALS: BP 145/90
== END 2019-09-02 11:46 | disposition home or self-care (01) ==
LOC: UCEAST 11:00
DX: M79.601 Pain in right arm (principal); W01.0XXA Fall on same level from slipping, tripping and stumbling without subsequent striking against object, initial encounter; Y93.01 Activity, walking, marching and hiking; Y92.009 Unspecified place in unspecified non-institutional (private) residence as the place of occurrence of the external cause; R56.9 Unspecified convulsions; F90.9 Attention-deficit hyperactivity disorder, unspecified type; Z88.3 Allergy status to other anti-infective agents; Z88.2 Allergy status to sulfonamides; Z88.8 Allergy status to other drugs, medicaments and biological substances; Z79.899 Other long term (current) drug therapy; F17.200 Nicotine dependence, unspecified, uncomplicated
CPT/HCPCS: 99213; G0463

== ENCOUNTER 2019-09-11 11:48 | Emergency (ER) | payer OTHER ==
[2019-09-11] MEDS ORDERED: Ondansetron INJ* 2 MG/ML VIAL IV ONE (12:09)
[2019-09-11] MEDS ORDERED: NS 0.9% 1000 ML** 1,000 ML IV ONE (12:09)
[2019-09-11] MEDS ORDERED: Ketorolac INJ* 30 MG/ML 1 ML VIAL IV PUSH ONE (12:09)
--- NOTE | 2019-09-11 12:10 | ED ---
GI/ HPI - HPI Summary HPI Summary: 19 year old female presents with abdominal pain for the past day. She states her pain is in her epigastric region. Does not move anywhere. Pain is constant. She's denies any nausea vomiting. Did have diarrhea yesterday. Denies any fevers or chills. No chest pain or shortness of breath. No cough. No sinus congestion. Not around anyone is sick. Has not been on antibiotics recently. Does admit to some dysuria. Also admits to some back pain. Has not taken anything for her symptoms. Has history of anxiety depression. - History of Current Complaint Chief Complaint: EDAbdPain Time Seen by Provider: 09/11/19 11:57 Stated Complaint: ABDOMINAL PAIN/VOMITING PER PT Hx Last Menstrual Period: unknow Pain Intensity: 10 - Additional Pertinent History Primary Care Physician: [facility] Lott at [facility] - Allergy/Home Medications Allergies/Adverse Reactions: Allergies Allergy/AdvReac Type Severity Reaction Status Date / Time divalproex sodium Allergy Unknown Verified 09/11/19 11:50 [From Depakote] Reaction Details phenytoin [From Dilantin] Allergy Unknown Verified 09/11/19 11:50 Reaction Details silver sulfadiazine Allergy Rash And Verified 09/11/19 11:50 [From Silvadene] Itching Sulfa (Sulfonamide Allergy Rash And Verified 09/11/19 11:50 Antibiotics) Itching sulfamethoxazole Allergy Rash Verified 09/11/19 11:50 [From Bactrim] trimethoprim [From Bactrim] Allergy Rash Verified 09/11/19 11:50 Home Medications: Home Medications Vitamin THERAPEUTIC TAB* [Theragran TAB*] 1 tab PO DAILY #30 tab 07/10/16 [Rx Confirmed 09/11/19] cloNIDine TAB* [Catapres 0.1 MG TAB*] 0.3 mg PO QPM #90 tab 07/10/16 [Rx Confirmed 09/11/19] Amlodipine 2.5 mg TAB (NF) 2.5 mg PO DAILY 08/06/19 [History Confirmed 09/11/19] Atorvastatin* [Lipitor*] 10 mg PO DAILY 08/06/19 [History Confirmed 09/11/19] Ethinyl Estradiol/Drospirenone [Gianvi 3-0.02 mg] 1 tab PO DAILY 08/06/19 [ History Confirmed 09/11/19] carBAMazepine TAB(*) [TEGretol TAB(*)] 400 mg PO BEDTIME 08/06/19 [History Confirmed 09/11/19] carBAMazepine TAB(*) [Tegretol TAB(*)] 200 mg PO BID 08/06/19 [History Confirmed 09/11/19] metFORMIN* [Glucophage 850 MG TAB *] 850 mg PO BID 08/06/19 [History Confirmed 09/11/19] Acetaminophen [Tylenol Extra Strength] 650 mg PO Q6H PRN 09/02/19 [History Confirmed 09/11/19] ALPRAZolam [Alprazolam Odt] 0.125 - 0.25 mg PO TID PRN 09/11/19 [History Confirmed 09/11/19] Amoxicillin/Clavulanate TAB* [Augmentin TAB 500 mg*] 500 mg PO BID #9 tab [Rx] HYDROcodone/ACETAMIN 5-325 MG* [[place] 5-325 TAB*] 1 tab PO Q6H PRN #16 tab MDD 4 09/11/19 [Rx] LevoCETirizine TAB (NF) [Xyzal TAB (NF)] 5 mg PO DAILY 09/11/19 [History Confirmed 09/11/19] Lurasidone(*) [Latuda] 40 mg PO DAILY 09/11/19 [History Confirmed 09/11/19] Ondansetron ODT TAB* [Zofran 4 MG Odt TAB*] 4 mg PO Q6H PRN #16 tab.odt [Rx] Prazosin 1 mg CAP [Minipress 1 mg CAP] 2 - 4 mg PO BEDTIME 09/11/19 [History Confirmed 09/11/19] Sertraline* [Zoloft*] 50 mg PO DAILY 09/11/19 [History Confirmed 09/11/19] Tamsulosin CAP* [Flomax CAP*] 0.4 mg PO DAILY #7 cap 09/11/19 [Rx] PMH/Surg Hx/FS Hx/Imm Hx Endocrine/Hematology History: Reports: Hx Diabetes, Other Endocrine/ Hematological Disorders - obesity Denies: Hx Anticoagulant Therapy, Hx Blood Disorders, Hx Anemia Cardiovascular History: Reports: Hx Hypertension Denies: Other Cardiovascular Problems/Disorders Respiratory History: Reports: Hx Pneumonia, Hx Seasonal Allergies Denies: Hx Asthma, Hx Chronic Bronchitis, Hx Chronic Obstructive Pulmonary Disease (COPD), Hx Cystic Fibrosis, Hx Lung Cancer, Hx Pleural Effusion, Hx Pulmonary Edema, Hx Pulmonary Embolism, Hx Sleep Apnea, Other Respiratory Problems/Disorders GI History: Reports: Other GI Disorders - elevated LFTs - on statin Denies: Hx Cirrhosis, Hx Crohn's Disease, Hx Irritable Bowel History: Denies: Hx Kidney Stones Musculoskeletal History: Reports: Hx Orthopedic Injury - Left foot fracture, Other Musculoskeletal History - Scheuermann's Disease Denies: Hx Arthritis, Hx Back Problems, Hx Bursitis, Hx Fibromyalgia, Hx Gout , Hx Osteoporosis, Hx Scoliosis, Hx Tendonitis Sensory History: Reports: Hx Contacts or Glasses - Pt has glasses with her Denies: Hx Cataracts, Hx Eye Injury, Hx Eye Prosthesis, Hx Glaucoma, Hx Legally Blind, Hx Macular Degeneration, Hx Vision Problem, Other Sensory Impairments Opthamlomology History: Reports: Hx Contacts or Glasses - Pt has glasses with her Denies: Hx Cataracts, Hx Eye Injury, Hx Eye Prosthesis, Hx Glaucoma, Hx Legally Blind, Hx Macular Degeneration, Hx Vision Problem, Other Sensory Impairments Neurological History: Reports: Hx Developmental Delay, Hx Headaches, Hx Seizures - myoclonal (recent onset) Denies: Hx Dementia, Hx Migraine, Hx Nerve Disease, Hx Spinal Cord Injury, Hx Transient Ischemic Attacks (TIA), Other Neuro Impairments/Disorders Psychiatric History: Reports: Hx Anxiety, Hx Attention Deficit Hyperactivity Disorder, Hx Depression, Hx Panic Disorder, Hx Post Traumatic Stress Disorder, Hx Inpatient Treatment, Hx Community Mental Health Tx, Hx Bipolar Disorder, Hx of Violent Episodes Against Others - Hits people/throws things, Other Psychiatric Issues/Disorders - Ingesting non-edible items (i.e.-mattress foam, shoelaces) Denies: Hx Eating Disorder, Hx Schizophrenia, Hx Suicide Attempt, Hx Substance Abuse - Cancer History Hx Chemotherapy: No Hx Radiation Therapy: No - Surgical History Surgery Procedure, Year, and Place: Oral Surgery 2002, Left Foot Post Fracture Hx Anesthesia Reactions: No Infectious Disease History: No Infectious Disease History: Denies: Hx Clostridium Difficile, Hx Hepatitis, Hx Human Immunodeficiency Virus (HIV), Hx of Known/Suspected MRSA, Hx Tuberculosis, History Other Infectious Disease, Traveled Outside the [place] in Last 30 Days - Family History Known Family History: Positive: Seizure Disorder - Uncle and second cousin - Social History Alcohol Use: Rare Alcohol Amount: states 1x per year Hx Substance Use: No Substance Use Type: Reports: None Substance Use Comment - Amount & Last Used: Pt states CBD oil use Hx Tobacco Use: Yes Smoking Status (MU): Former Smoker Type: Cigarettes Amount Used/How Often: 1 cig/day Review of Systems Negative: Fever Negative: Chest Pain Negative: Shortness Of Breath Positive: Abdominal Pain, Vomiting, Diarrhea, Nausea Positive: dysuria All Other Systems Reviewed And Are Negative: Yes Physical Exam Triage Information Reviewed: Yes Vital Signs On Initial Exam: Initial Vitals Temp Pulse Resp BP Pulse Ox 95.9 F 85 16 149/104 99 09/11/19 11:50 09/11/19 11:50 09/11/19 11:50 09/11/19 11:50 09/11/19 11:50 Vital Signs Reviewed: Yes Appearance: Positive: Well-Appearing Skin: Positive: Warm, Dry Head/Face: Positive: Normal Head/Face Inspection Eyes: Positive: Normal, Conjunctiva Clear ENT: Positive: Pharynx normal Respiratory/Lung Sounds: Positive: Clear to Auscultation, Breath Sounds Present Cardiovascular: Positive: Normal, RRR Abdomen Description: Positive: Soft, CVA Tenderness (R), Other: - tenderness RUQ Bowel Sounds: Positive: Present Musculoskeletal: Positive: Normal Neurological: Positive: Normal Psychiatric: Positive: Normal Procedures - Sedation Patient Received Moderate/Deep Sedation with Procedure: No Diagnostics - Vital Signs Vital Signs Temp Pulse Resp BP Pulse Ox 09/11/19 12:04 90 99 09/11/19 12:03 85 147/91 99 09/11/19 11:50 95.9 F 85 16 149/104 99 - Laboratory Result Diagrams: 09/11/19 12:30 09/11/19 12:30 Lab Statement: Any lab studies that have been ordered have been reviewed, and results considered in the medical decision making process. - CT abd CT Interpretation Completed By: Radiologist Summary of CT Findings: There is a 1 to 2 mm calculus right ureterovesicular junction resulting in mild right hydronephrosis and obstruction of the right kidney. There is delay in excretion of the right kidney with enlargement of the right kidney. - Ultrasound No standard instances Ultrasound Interpretation Completed By: Radiologist Summary of Ultrasound Findings: IMPRESSION: Unremarkable right upper quadrant ultrasound. Re-Evaluation - Re-Evaluation First Eval Re-Evaluation Time: 13:49 Comment: pain now in RLQ so will get CT Second Eval Re-Evaluation Time: 15:04 Change: Improved Comment: feeling better. discussed results GIGU Course/Dx - Course Course Of Treatment: 19 year old female presents with abdominal pain for the past day. She states her pain is in her epigastric region. Does not move anywhere. Pain is constant. She's denies any nausea vomiting. Did have diarrhea yesterday. Denies any fevers or chills. No chest pain or shortness of breath. No cough. No sinus congestion. Not around anyone is sick. Has not been on antibiotics recently. Does admit to some dysuria. Also admits to some back pain. Has not taken anything for her symptoms. Has history of anxiety depression. On exam tenderness in the right upper quadrant. Does have right CVA tenderness. wbc 15.8. crp elevated. lfts normal. gallbladder u/s normal. urine looks like uti so gave dose of rocephin. reevulation pain now in RLQ so will get CT. CT shows 1-2mm stone. will place on augmentin for potential uti. placed on flomax. will give referral to urology. patient understand and agrees with plan. - Diagnoses Differential Diagnoses - Female: Gall Bladder Disease, Gastritis, Gastroenteritis (Viral), Urinary Tract Infection Provider Diagnoses: Right ureteral stone, UTI (urinary tract infection) Discharge ED - Sign-Out/Discharge Documenting (check all that apply): Patient Departure - Discharge Plan Condition: Good Disposition: HOME Referrals: Loly Israel NP [Primary Care Provider] - - Billing Disposition and Condition Condition: GOOD Disposition: Home
[2019-09-11 12:48] LABS: ABS Basophils 0.1 10^3/ul (0-0.2); ABS Eosinophils 0.2 10^3/ul (0-0.6); ABS Lymphocytes 2.9 10^3/ul (1.0-4.8); ABS Monocytes 0.5 10^3/ul (0-0.8); ABS Neutrophils 12.1 10^3/ul (1.5-7.7); Eosinophil % 1.1 %; Hematocrit 42 % (35-47); Lymphocyte % 18.4 %; Mean Corpuscular HGB Conc 33 g/dL (31-36); Mean Corpuscular Hemoglobin 29 pg (27-31); Mean Corpuscular Volume 86 fL (80-97); Platelet Count 444 10^3/uL (150-450); Red Blood Count 4.92 10^6 /uL (3.70-4.87); Red Cell Distribution Width 14 % (10-15); White Blood Count 15.8 10^3/uL (3.5-10.8)
[2019-09-11 13:08] LABS: ALT 20 U/L (7-52); AST 17 U/L (13-39); Albumin 4.5 g/dL (3.2-5.2); Albumin/Globulin Ratio 1.2 (1-3); Alkaline Phosphatase 107 U/L (34-104); Anion Gap 11 mmol/L (2-11); BUN/Creatinine Ratio 14.5 (8-20); Blood Urea Nitrogen 12 mg/dL (6-24); C Reactive Protein 24.07 mg/L (<8.01); CO2 Carbon Dioxide 26 mmol/L (22-32); Calcium 9.9 mg/dL (8.6-10.3); Chloride 101 mmol/L (101-111); EGFR Non-African American 86.8 (>60); Globulin 3.7 g/dL (2-4); Glucose 115 mg/dL (70-100); Potassium 3.7 mmol/L (3.5-5.0); Sodium 138 mmol/L (135-145); Total Protein 8.2 g/dL (6.4-8.9)
[2019-09-11 13:13] LABS: HCG Pregnancy < 0.60 mIU/mL
[2019-09-11 13:31] LABS: Urine Appearance Turbid; Urine Bilirubin Negative (Negative); Urine Blood 3+ (Negative); Urine Color Amber; Urine Glucose Negative (Negative); Urine Ketones Trace (Negative); Urine Nitrite Negative (Negative); Urine Protein 1+(30 mg/dL) (Negative); Urine Specific Gravity 1.032 (1.010-1.030); Urine Urobilinogen Negative (Negative)
[2019-09-11 13:42] LABS: Urine Bacteria 1+ (Absent); Urine Red Blood Cell 3+(>10/hpf) (Absent); Urine Squamous Epithelial Cell Present (Absent); Urine White Blood Cell 2+(11-20/hpf) (Absent)
[2019-09-11] MEDS ORDERED: cefTRIAXone(*) 1 GM in NS 0.9% 50 ML* 50 ML IVPB ONE (13:49)
[2019-09-11] MEDS ORDERED: Iodixanol* (CONTRAST) 320 MG/ML 100 ML SDV IV ONE (14:03)
[2019-09-11] MEDS ORDERED: Morphine 4 MG/ML VIAL (1 ml) 4 MG/ML VIAL IV ONE (14:43)
[2019-09-11] MEDS ORDERED: Tamsulosin CAP* 0.4 MG PO ONE (15:23)
[2019-09-11 15:29] VITALS: BP 139/98
== END 2019-09-11 15:28 | disposition home or self-care (01) ==
LOC: ED 11:48
DX: N13.2 Hydronephrosis with renal and ureteral calculous obstruction (principal); N39.0 Urinary tract infection, site not specified; E11.9 Type 2 diabetes mellitus without complications; I10 Essential (primary) hypertension; R62.50 Unspecified lack of expected normal physiological development in childhood; F41.9 Anxiety disorder, unspecified; F90.9 Attention-deficit hyperactivity disorder, unspecified type; F43.10 Post-traumatic stress disorder, unspecified; F31.9 Bipolar disorder, unspecified; Z87.891 Personal history of nicotine dependence; Z79.84 Long term (current) use of oral hypoglycemic drugs; Z79.899 Other long term (current) drug therapy; Z88.1 Allergy status to other antibiotic agents; Z88.2 Allergy status to sulfonamides; Z88.8 Allergy status to other drugs, medicaments and biological substances
CPT/HCPCS: 36415; 74177; 76705; 80053; 81003; 81015; 83605; 83690; 84702; 85025; 86140; 87086; 96361; 96365; 96375; 99283; J0696; J1885; J2270; J2405; Q9967

== ENCOUNTER 2020-03-25 18:18 | Inpatient (IN) ==
[2020-03-25 21:11] LABS: ABS Basophils 0.1 10^3/ul (0-0.2); ABS Eosinophils 0.1 10^3/ul (0-0.6); ABS Lymphocytes 3.4 10^3/ul (1.0-4.8); ABS Monocytes 0.5 10^3/ul (0-0.8); ABS Neutrophils 7.8 10^3/ul (1.5-7.7); Eosinophil % 0.9 %; Hematocrit 41 % (35-47); Lymphocyte % 28.7 %; Mean Corpuscular HGB Conc 34 g/dL (31-36); Mean Corpuscular Hemoglobin 29 pg (27-31); Mean Corpuscular Volume 87 fL (80-97); Mean Platelet Volume 6.8 fL (7.4-10.4); Platelet Count 433 10^3/uL (150-450); Red Blood Count 4.78 10^6 /uL (3.70-4.87); Red Cell Distribution Width 14 % (10-15)
[2020-03-25 21:22] LABS: ALT 59 U/L (7-52); AST 35 U/L (13-39); Albumin 4.5 g/dL (3.2-5.2); Albumin/Globulin Ratio 1.3 (1-3); Alkaline Phosphatase 108 U/L (34-104); Anion Gap 10 mmol/L (2-11); BUN/Creatinine Ratio 12.3 (8-20); Blood Urea Nitrogen 9 mg/dL (6-24); CO2 Carbon Dioxide 25 mmol/L (22-32); Calcium 9.8 mg/dL (8.6-10.3); Chloride 104 mmol/L (101-111); EGFR African American 121.8 (>60); EGFR Non-African American 100.6 (>60); Globulin 3.4 g/dL (2-4); Glucose 107 mg/dL (70-100); Potassium 3.8 mmol/L (3.5-5.0); Sodium 139 mmol/L (135-145); Total Protein 7.9 g/dL (6.4-8.9)
[2020-03-25 21:38] LABS: Acetaminophen < 15 mcg/mL; Alcohol, S < 10 mg/dL (<10); Salicylate < 2.50 mg/dL (<30)
[2020-03-25 21:52] LABS: TSH Ultra Thyroid Stim Horm 0.77 mcIU/mL (0.34-5.60)
[2020-03-26] MEDS ORDERED: Al Hydrox/Mg Hydrox/Simet LIQ 30 ML UDC PO PRN (00:15)
[2020-03-26] MEDS: Vitamin THERAPEUTIC TAB PO SCH (08:41)
[2020-03-26] MEDS: Fluticasone NASAL SPRAY 50MCG 16 gm SPRAY BTL INTRANASAL SCH (08:42)
[2020-03-26] MEDS: ETHINYL ESTRADIOL PO SCH (08:45)
[2020-03-26] MEDS: [UNRECOGNIZED DRUG - OTHER] PO SCH (08:45)
[2020-03-26] MEDS: DROSPIRENONE PO SCH (08:45)
[2020-03-27] MEDS: ETHINYL ESTRADIOL PO SCH (09:11)
[2020-03-27] MEDS: [UNRECOGNIZED DRUG - OTHER] PO SCH (09:11)
[2020-03-27] MEDS: DROSPIRENONE PO SCH (09:11)
[2020-03-27] MEDS: Fluticasone NASAL SPRAY 50MCG 16 gm SPRAY BTL INTRANASAL SCH (09:11)
[2020-03-27] MEDS: Vitamin THERAPEUTIC TAB PO SCH (09:14)
[2020-03-28 09:08] LABS: HDL Cholesterol 73.7 mg/dL
[2020-03-28] MEDS: Vitamin THERAPEUTIC TAB PO SCH (09:30)
[2020-03-28] MEDS: [UNRECOGNIZED DRUG - OTHER] PO SCH (09:31)
[2020-03-28] MEDS: DROSPIRENONE PO SCH (09:31)
[2020-03-28] MEDS: ETHINYL ESTRADIOL PO SCH (09:31)
[2020-03-28] MEDS: Fluticasone NASAL SPRAY 50MCG 16 gm SPRAY BTL INTRANASAL SCH (09:32)
[2020-03-28 17:56] VITALS: BP 137/83
== END 2020-03-28 18:00 | disposition home or self-care (01) | DRG 753 ==
LOC: ED 18:18 → BSU 03-26 00:09
PROVIDERS: ADMIT Psychiatry & Neurology Psychiatry; ATTEND Psychiatry & Neurology Psychiatry

== ENCOUNTER 2020-05-11 14:27 | Inpatient (IN) ==
[2020-05-11 15:50] LABS: ABS Eosinophils 0.1 10^3/ul (0-0.6); ABS Lymphocytes 2.6 10^3/ul (1.0-4.8); ABS Monocytes 0.4 10^3/ul (0-0.8); ABS Neutrophils 7.3 10^3/ul (1.5-7.7); Eosinophil % 0.5 %; Hematocrit 42 % (35-47); Hemoglobin 14.6 g/dL (12.0-16.0); Lymphocyte % 24.8 %; Mean Corpuscular HGB Conc 34 g/dL (31-36); Mean Corpuscular Hemoglobin 30 pg (27-31); Mean Corpuscular Volume 86 fL (80-97); Mean Platelet Volume 7.1 fL (7.4-10.4); Platelet Count 381 10^3/uL (150-450); Red Blood Count 4.92 10^6 /uL (3.70-4.87); Red Cell Distribution Width 13 % (10-15); White Blood Count 10.4 10^3/uL (3.5-10.8)
[2020-05-11 16:30] LABS: TSH Ultra Thyroid Stim Horm 0.76 mcIU/mL (0.34-5.60)
[2020-05-11 16:42] LABS: ALT 56 U/L (7-52); AST 46 U/L (13-39); Albumin 4.5 g/dL (3.2-5.2); Albumin/Globulin Ratio 1.5 (1-3); Alkaline Phosphatase 97 U/L (34-104); Anion Gap 14 mmol/L (2-11); BUN/Creatinine Ratio 13.8 (8-20); Blood Urea Nitrogen 9 mg/dL (6-24); CO2 Carbon Dioxide 23 mmol/L (22-32); Calcium 9.8 mg/dL (8.6-10.3); Chloride 103 mmol/L (101-111); EGFR African American 139.2 (>60); EGFR Non-African American 115.1 (>60); Globulin 3.1 g/dL (2-4); Glucose 105 mg/dL (70-100); Potassium 3.7 mmol/L (3.5-5.0); Sodium 140 mmol/L (135-145); Total Protein 7.6 g/dL (6.4-8.9)
[2020-05-11 16:43] LABS: Acetaminophen < 15 mcg/mL; Alcohol, S < 10 mg/dL (<10); Salicylate < 2.50 mg/dL (<30)
[2020-05-11] MEDS ORDERED: Al Hydrox/Mg Hydrox/Simet LIQ 30 ML UDC PO PRN (22:18)
[2020-05-12] MEDS ORDERED: Nicotine GUM 2MG FRUIT FLAVOR PO PRN (02:44)
[2020-05-12] MEDS ORDERED: CLINDAMYCIN 1% TOPICAL SCH (09:00)
[2020-05-12] MEDS: Nicotine PATCH 7 MG/24 HR PATCH TRANSDERM SCH (11:22)
[2020-05-12] MEDS: Fluticasone NASAL SPRAY 50MCG 16 gm SPRAY BTL BOTH NARES SCH (11:22)
[2020-05-12] MEDS: DROSPIRENONE ETHINYL ESTRADIOL PO SCH (11:23)
[2020-05-12] MEDS: Vitamin THERAPEUTIC TAB PO SCH (11:23)
[2020-05-13] MEDS: Vitamin THERAPEUTIC TAB PO SCH (09:07)
[2020-05-13] MEDS: DROSPIRENONE ETHINYL ESTRADIOL PO SCH (09:09)
[2020-05-13] MEDS: Fluticasone NASAL SPRAY 50MCG 16 gm SPRAY BTL BOTH NARES SCH (09:10)
[2020-05-13] MEDS: Nicotine PATCH 7 MG/24 HR PATCH TRANSDERM SCH (09:10)
[2020-05-14] MEDS: Vitamin THERAPEUTIC TAB PO SCH (08:59)
[2020-05-14] MEDS: Nicotine PATCH 7 MG/24 HR PATCH TRANSDERM SCH (09:02)
[2020-05-14] MEDS: Fluticasone NASAL SPRAY 50MCG 16 gm SPRAY BTL BOTH NARES SCH (09:02)
[2020-05-14] MEDS: DROSPIRENONE ETHINYL ESTRADIOL PO SCH (09:03)
[2020-05-14 09:17] LABS: HDL Cholesterol 77.6 mg/dL
[2020-05-15] MEDS: Vitamin THERAPEUTIC TAB PO SCH (09:15)
[2020-05-15] MEDS: DROSPIRENONE ETHINYL ESTRADIOL PO SCH (09:17)
[2020-05-15] MEDS: Nicotine PATCH 7 MG/24 HR PATCH TRANSDERM SCH (09:18)
[2020-05-15] MEDS: Fluticasone NASAL SPRAY 50MCG 16 gm SPRAY BTL BOTH NARES SCH (09:18)
[2020-05-16] MEDS: DROSPIRENONE ETHINYL ESTRADIOL PO SCH (08:59)
[2020-05-16] MEDS: Fluticasone NASAL SPRAY 50MCG 16 gm SPRAY BTL BOTH NARES SCH (08:59)
[2020-05-16] MEDS: Nicotine PATCH 7 MG/24 HR PATCH TRANSDERM SCH (09:00)
[2020-05-16] MEDS: Vitamin THERAPEUTIC TAB PO SCH (09:01)
[2020-05-17 08:20] VITALS: BP 116/66
[2020-05-17] MEDS: Vitamin THERAPEUTIC TAB PO SCH (08:24)
[2020-05-17] MEDS: Fluticasone NASAL SPRAY 50MCG 16 gm SPRAY BTL BOTH NARES SCH (08:25)
[2020-05-17] MEDS: DROSPIRENONE ETHINYL ESTRADIOL PO SCH (08:26)
[2020-05-17] MEDS: Nicotine PATCH 7 MG/24 HR PATCH TRANSDERM SCH (08:26)
== END 2020-05-17 11:20 | disposition home or self-care (01) | DRG 753 ==
LOC: ED 14:27 → BSU 22:00
PROVIDERS: ADMIT Psychiatry & Neurology Psychiatry; ATTEND Psychiatry & Neurology Psychiatry

== ENCOUNTER 2020-12-26 12:43 | Inpatient (IN) ==
[2020-12-26 13:45] LABS: ABS Eosinophils 0.2 10^3/ul (0-0.6); ABS Lymphocytes 3.1 10^3/ul (1.0-4.8); ABS Monocytes 0.4 10^3/ul (0-0.8); Eosinophil % 1.8 %; Hematocrit 42 % (35-47); Hemoglobin 14.2 g/dL (12.0-16.0); Mean Corpuscular HGB Conc 33 g/dL (31-36); Mean Corpuscular Hemoglobin 30 pg (27-31); Mean Corpuscular Volume 89 fL (80-97); Mean Platelet Volume 6.9 fL (7.4-10.4); Nucleated Red Blood Cells % 0.1; Platelet Count 385 10^3/uL (150-450); Red Cell Distribution Width 14 % (10-15); White Blood Count 8.7 10^3/uL (3.5-10.8)
[2020-12-26 14:02] LABS: ALT 19 U/L (7-52); AST 16 U/L (13-39); Albumin 4.1 g/dL (3.2-5.2); Albumin/Globulin Ratio 1.2 (1-3); Alkaline Phosphatase 92 U/L (35-149); Anion Gap 9 mmol/L (2-11); Blood Urea Nitrogen 10 mg/dL (6-24); CO2 Carbon Dioxide 25 mmol/L (22-32); Calcium 9.4 mg/dL (8.6-10.3); Chloride 103 mmol/L (101-111); EGFR African American 133.2 (>60); EGFR Non-African American 110.1 (>60); Globulin 3.3 g/dL (2-4); Glucose 98 mg/dL (70-100); Potassium 4.1 mmol/L (3.5-5.0); Sodium 137 mmol/L (135-145); Total Protein 7.4 g/dL (6.4-8.9)
[2020-12-26 14:08] LABS: HCG Pregnancy < 0.60 mIU/mL
[2020-12-26 14:23] LABS: Acetaminophen < 15 mcg/mL; Alcohol, S < 10 mg/dL (<10); Salicylate < 2.50 mg/dL (<30)
[2020-12-26 14:52] LABS: Urine Appearance Cloudy; Urine Bilirubin Negative (Negative); Urine Blood Negative (Negative); Urine Color Yellow; Urine Glucose Negative (Negative); Urine Ketones Negative (Negative); Urine Nitrite Negative (Negative); Urine Protein Negative (Negative); Urine Specific Gravity 1.018 (1.002-1.030); Urine Urobilinogen Negative (Negative)
[2020-12-26 16:41] LABS: Urine Benzodiazepine Screen None Detected (None Detect); Urine Cannabinoids Screen None Detected (None Detect); Urine Opiates Screen None Detected (None Detect)
[2020-12-26] MEDS ORDERED: Al Hydrox/Mg Hydrox/Simet LIQ 30 ML UDC PO PRN (19:53)
[2020-12-27] MEDS: Vitamin THERAPEUTIC TAB PO SCH (08:17)
[2020-12-27] MEDS: DROSPIRENONE PO SCH (08:17)
[2020-12-27] MEDS: ETH ESTRADIOL PO SCH (08:17)
[2020-12-28 07:54] LABS: HDL Cholesterol 73.7 mg/dL
[2020-12-28] MEDS: DROSPIRENONE PO SCH (09:07)
[2020-12-28] MEDS: Vitamin THERAPEUTIC TAB PO SCH (09:07)
[2020-12-28] MEDS: ETH ESTRADIOL PO SCH (09:07)
[2020-12-29 09:21] VITALS: BP 127/93
[2020-12-29] MEDS: DROSPIRENONE PO SCH (09:21)
[2020-12-29] MEDS: ETH ESTRADIOL PO SCH (09:21)
[2020-12-29] MEDS: Vitamin THERAPEUTIC TAB PO SCH (09:23)
== END 2020-12-29 10:50 | disposition home or self-care (01) | DRG 753 ==
LOC: ED 12:43 → BSU 21:20
PROVIDERS: ADMIT Psychiatry & Neurology Psychiatry; ATTEND Psychiatry & Neurology Psychiatry

== ENCOUNTER 2021-01-25 16:02 | Inpatient (IN) ==
[2021-01-25 23:06] LABS: Hematocrit 44 % (35-47); Hemoglobin 14.2 g/dL (12.0-16.0); Mean Corpuscular HGB Conc 32 g/dL (31-36); Mean Corpuscular Hemoglobin 29 pg (27-31); Mean Corpuscular Volume 90 fL (80-97); Platelet Count 422 10^3/uL (150-450); Red Blood Count 4.91 10^6 /uL (3.70-4.87); Red Cell Distribution Width 14 % (10-15); White Blood Count 12.7 10^3/uL (3.5-10.8)
[2021-01-25 23:11] LABS: ABS Basophils 0.1 10^3/ul (0-0.2); ABS Eosinophils 0.1 10^3/ul (0-0.6); ABS Lymphocytes 5.5 10^3/ul (1.0-4.8); ABS Monocytes 0.6 10^3/ul (0-0.8); ABS Neutrophils 6.5 10^3/ul (1.5-7.7); Eosinophil % 0.6 %; Nucleated Red Blood Cells % 0.1
[2021-01-25 23:24] LABS: ALT 23 U/L (7-52); AST 22 U/L (13-39); Albumin 4.5 g/dL (3.2-5.2); Albumin/Globulin Ratio 1.3 (1-3); Alkaline Phosphatase 97 U/L (35-149); Anion Gap 11 mmol/L (2-11); Blood Urea Nitrogen 10 mg/dL (6-24); CO2 Carbon Dioxide 24 mmol/L (22-32); Calcium 9.4 mg/dL (8.6-10.3); Chloride 102 mmol/L (101-111); EGFR African American 154.2 (>60); EGFR Non-African American 127.5 (>60); Globulin 3.6 g/dL (2-4); Glucose 88 mg/dL (70-100); Potassium 3.6 mmol/L (3.5-5.0); Sodium 137 mmol/L (135-145); Total Protein 8.1 g/dL (6.4-8.9)
[2021-01-25 23:31] LABS: HCG Pregnancy < 0.60 mIU/mL
[2021-01-25 23:43] LABS: Acetaminophen < 15 mcg/mL; Alcohol, S < 13 mg/dL (<13); Salicylate < 2.50 mg/dL (<30)
[2021-01-25 23:57] LABS: TSH Ultra Thyroid Stim Horm 2.55 mcIU/mL (0.34-5.60)
[2021-01-26] MEDS ORDERED: Al Hydrox/Mg Hydrox/Simet LIQ 30 ML UDC PO PRN (02:55)
[2021-01-26] MEDS: Vitamin THERAPEUTIC TAB PO SCH (08:42)
[2021-01-26] MEDS: DROSPIRENONE TABLE T PO SCH (11:33)
[2021-01-26] MEDS: ETHINYL ESTRADIOL PO SCH (11:33)
[2021-01-27] MEDS: Vitamin THERAPEUTIC TAB PO SCH (09:05)
[2021-01-27] MEDS: ETHINYL ESTRADIOL PO SCH (09:08)
[2021-01-27] MEDS: DROSPIRENONE TABLE T PO SCH (09:08)
[2021-01-27 12:00] VITALS: BP 125/78
== END 2021-01-27 14:43 | disposition home or self-care (01) | DRG 753 ==
LOC: ED 16:02 → BSU 01-26 02:10
PROVIDERS: ADMIT Psychiatry & Neurology Psychiatry; ATTEND Psychiatry & Neurology Psychiatry

== ENCOUNTER 2023-01-01 17:02 | Inpatient (IN) ==
[2023-01-01 18:44] LABS: Urine Benzodiazepine Screen None Detected (None Detect); Urine Cannabinoids Screen None Detected (None Detect); Urine Opiates Screen None Detected (None Detect)
[2023-01-01 18:47] LABS: ABS Basophils 0.1 10^3/uL (0.0-0.1); ABS Eosinophils 0.2 10^3/uL (0.0-0.5); ABS Lymphocytes 2.8 10^3/uL (1.0-4.8); ABS Monocytes 0.9 10^3/uL (0.0-0.9); ABS Neutrophils 11.9 10^3/uL (1.5-7.6); ABS Nucleated RBC 0.01 10^3/ul; Hematocrit 43.4 % (35-45); Hemoglobin 14.5 g/dL (11.5-14.3); Lymphocyte % 17.7 %; Mean Corpuscular Hemoglobin 28.6 pg (27-33); Mean Corpuscular Hgb Conc 33.5 g/dL (31-36); Mean Corpuscular Volume 85.4 fL (80-97); Platelet Count 451 10^3/uL (150-450); Red Blood Count 5.08 10^6/uL (3.63-4.92); Red Cell Distribution Width 15.3 % (12-17); White Blood Count 15.8 10^3/uL (3.8-11.8)
[2023-01-01 19:01] LABS: ALT 23 U/L (7-52); AST 24 U/L (13-39); Albumin 4.4 g/dL (3.2-5.2); Albumin/Globulin Ratio 1.4 (1-3); Alkaline Phosphatase 86 U/L (35-149); Anion Gap 8 mmol/L (2-16); Blood Urea Nitrogen 6 mg/dL (6-24); CO2 Carbon Dioxide 24 mmol/L (22-32); Calcium 9.8 mg/dL (8.6-10.3); Chloride 105 mmol/L (101-111); Globulin 3.1 g/dL (2-4); Glucose 143 mg/dL (70-100); Potassium 3.6 mmol/L (3.5-5.0); Sodium 137 mmol/L (135-145); Total Protein 7.5 g/dL (6.4-8.9); eGFR CKD-EPI 123.8 (>60)
[2023-01-01 19:03] LABS: HCG Pregnancy < 0.60 mIU/mL
[2023-01-01 19:28] LABS: Alcohol, S < 13 mg/dL (<13); Salicylate < 2.50 mg/dL (<30)
[2023-01-01 19:30] LABS: TSH Ultra Thyroid Stim Horm 1.28 mcIU/mL (0.34-5.60)
[2023-01-01 19:40] LABS: Acetaminophen < 15 mcg/mL
[2023-01-02] MEDS ORDERED: Al Hydrox/Mg Hydrox/Simet LIQ 30 ML UDC PO PRN (00:17)
[2023-01-02] MEDS: ADAPALENE 0.3% TOPICAL SCH ×2 (01:21→20:48)
[2023-01-02] MEDS ORDERED: Vitamin THERAPEUTIC TAB PO SCH (09:00)
[2023-01-02] MEDS: Fluticasone NASAL SPRAY 50MCG 16 gm SPRAY BTL BOTH NARES SCH (13:33)
[2023-01-02] MEDS: Lithium Carbonate ER 450mg TAB PO SCH ×2 (13:34→20:50)
[2023-01-03] MEDS: Lithium Carbonate ER 450mg TAB PO SCH ×2 (08:59→19:50)
[2023-01-03] MEDS: Fluticasone NASAL SPRAY 50MCG 16 gm SPRAY BTL BOTH NARES SCH (09:02)
[2023-01-03] MEDS: ADAPALENE 0.3% TOPICAL SCH (20:21)
[2023-01-04] MEDS: Fluticasone NASAL SPRAY 50MCG 16 gm SPRAY BTL BOTH NARES SCH (09:37)
[2023-01-04] MEDS: Lithium Carbonate ER 450mg TAB PO SCH ×2 (09:37→21:08)
[2023-01-04] MEDS: ADAPALENE 0.3% TOPICAL SCH (20:54)
[2023-01-05] MEDS: Lithium Carbonate ER 450mg TAB PO SCH ×2 (08:34→20:20)
[2023-01-05] MEDS: Fluticasone NASAL SPRAY 50MCG 16 gm SPRAY BTL BOTH NARES SCH (08:35)
[2023-01-05] MEDS: ADAPALENE 0.3% TOPICAL SCH (21:40)
[2023-01-06] MEDS: Fluticasone NASAL SPRAY 50MCG 16 gm SPRAY BTL BOTH NARES SCH (08:25)
[2023-01-06] MEDS: Lithium Carbonate ER 450mg TAB PO SCH ×2 (08:28→19:50)
[2023-01-06] MEDS: ADAPALENE 0.3% TOPICAL SCH (20:23)
[2023-01-07] MEDS: Fluticasone NASAL SPRAY 50MCG 16 gm SPRAY BTL BOTH NARES SCH (08:22)
[2023-01-07] MEDS: Lithium Carbonate ER 450mg TAB PO SCH (08:23)
[2023-01-07 09:08] VITALS: BP 141/86
== END 2023-01-07 02:06 | disposition home or self-care (01) | DRG 753 ==
LOC: ED 17:02 → EDHOLD 23:15 → BSU 01-02 01:05
PROVIDERS: ADMIT Psychiatry & Neurology Psychiatry; ATTEND Psychiatry & Neurology Psychiatry